=== PATIENT | female | born 1980 | race Hispanic/Latino ===

== ENCOUNTER 2018-01-07 00:24 | Emergency (ER) | payer OTHER ==
--- NOTE | 2018-01-07 00:42 | EDPHYS ---
Physician Documentation [facility] Name: Estefany Beckham Age: 37 yrs Sex: Female : 1980 Arrival Date: 01/07/2018 Time: 00:29 Bed 13 Private MD: ED Physician Jermaine Johnson HPI: 01/07 00:36 This 37 yrs old Female presents to ER via Unassigned with complaints of Insect pm1 Bite. 00:36 The patient's rash thought to be caused by insect bites. The rash is located on the pm1 dorsum of right foot. The rash can be described as vesicular. Onset: The symptoms/episode began/occurred this morning. Associated signs and symptoms: Pertinent positives: itching, Pain Pertinent negatives: burning sensation, difficulty breathing, fever. Severity of symptoms:. Treatment given at home: None. The patient has not experienced similar symptoms in the past. The patient has not recently seen a physician. Patient concerned that she might have been bitten buy a spider on her right foot. 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 - Social history:: Smoking status: Patient/guardian denies using tobacco, never smoked. - Ebola Screening: : No symptoms or risks identified at this time. ROS: 00:36 Constitutional: Negative for fever, chills, and weight loss, Eyes: Negative for injury, pm1 pain, redness, and discharge, ENT: Negative for injury, pain, and discharge, Neck: Negative for injury, pain, and swelling, Cardiovascular: Negative for chest pain, palpitations, and edema, Respiratory: Negative for shortness of breath, cough, wheezing, and pleuritic chest pain, Abdomen/GI: Negative for abdominal pain, nausea, vomiting, diarrhea, and constipation, Back: Negative for injury and pain, MS/Extremity: Negative for injury and deformity. 00:36 Neuro: Negative for headache, weakness, numbness, tingling, and seizure. 00:36 Skin: Positive for of the dorsum of right foot, burning, itchy rash. Exam: 00:36 Constitutional: This is a well developed, well nourished patient who is awake, alert, pm1 and in no acute distress. Head/Face: Normocephalic, atraumatic. Neck: Trachea midline, no thyromegaly or masses palpated, and no cervical lymphadenopathy. Supple, full range of motion without nuchal rigidity, or vertebral point tenderness. No Meningismus. Chest/axilla: Normal chest wall appearance and motion. Nontender with no deformity. No lesions are appreciated. Cardiovascular: Regular rate and rhythm with a normal S1 and S2. No gallops, murmurs, or rubs. Normal PMI, no JVD. No pulse deficits. Respiratory: Lungs have equal breath sounds bilaterally, clear to auscultation and percussion. No rales, rhonchi or wheezes noted. No increased work of breathing, no retractions or nasal flaring. Abdomen/GI: Soft, non-tender, with normal bowel sounds. No distension or tympany. No guarding or rebound. No evidence of tenderness throughout. Back: No spinal tenderness. No costovertebral tenderness. Full range of motion. 00:36 Skin: Appearance: normal except for affected area, cellulitis, that is mild, on the dorsum of right foot. 00:36 Neuro: Orientation: is normal, Motor: is normal, moves all fours. Vital Signs: 00:31 BP 145 / 81; Pulse 55; Resp 16; Temp 97.9(O); Pulse Ox 99% on R/A; Weight 131.54 kg; cc3 Height 5 ft. 3 in. (160.02 cm); 00:31 Body Mass Index 51.37 (131.54 kg, 160.02 cm) cc3 MDM: 00:31 Patient medically screened. pm1 00:41 Data reviewed: vital signs. Data interpreted: Pulse oximetry: on room air is 100 %. pm1 Interpretation: normal. Counseling: I had a detailed discussion with the patient and/or guardian regarding: the historical points, exam findings, and any diagnostic results supporting the discharge/admit diagnosis, the need for outpatient follow up, to return to the emergency department if symptoms worsen or persist or if there are any questions or concerns that arise at home. Administered Medications: 00:50 Drug: Bactrim (160 mg-800 mg (DS) 1 tablet Route: PO; cc3 01:00 Follow up: Response: No adverse reaction cc3 00:53 Drug: Tetanus-Diphtheria Toxoid Adult 0.5 ml {Manugrapher: Apozy. Exp: cc3 12/21/2019. Lot #: [id number]. } Route: IM; Site: left deltoid; 01:00 Follow up: Response: No adverse reaction cc3 Disposition: 01/07/18 00:42 Discharged to Home. Impression: Cellulitis of right lower limb - foot. - Condition is Stable. - Discharge Instructions: Insect Bite, Cellulitis, Adult. - Prescriptions for Bactrim DS 800- 160 mg Oral Tablet - take 1 tablet by ORAL route every 12 hours for 10 days; 20 tablet. - Medication Reconciliation Form, Thank You Letter, Antibiotic Education form. - Follow up: Emergency Department; When: As needed; Reason: Worsening of condition. Follow up: Private Physician; When: 2 - 3 days; Reason: Recheck today's complaints, Continuance of care, Re-evaluation by your physician. - Problem is new. - Symptoms have improved. Addendum: 01/08/2018 04:09 Co-signature as Attending Physician, Jermaine Johnson MD. g s Signatures: Diego Lewis, BARBER INSTRUCTOR BARBER INSTRUCTOR pm1 Jermaine Johnson MD MD gs Cordel, Charlene cc3 Corrections: (The following items were deleted from the chart) 01/07 01:07 00:42 01/07/2018 00:42 Discharged to Home. Impression: Cellulitis of right lower limb - cc3 foot. Condition is Stable. Forms are Medication Reconciliation Form, Thank You Letter, Antibiotic Education, Prescription Opioid Use. Follow up: Emergency Department; When: As needed; Reason: Worsening of condition. Follow up: Private Physician; When: 2 - 3 days; Reason: Recheck today's complaints, Continuance of care, Re-evaluation by your physician. Problem is new. Symptoms have improved. pm1
[2018-01-07] MEDS ORDERED: SMZ./TMP. 800/160 MG TABLET ONE (00:56)
[2018-01-07] MEDS ORDERED: TETANUS & DIPHTHERIA TOX,ADULT 0.5 ML VIAL ONE (00:57)
--- NOTE | 2018-01-07 01:07 | ER ---
Nurse's Notes [facility] Name: Estefany Beckham Age: 37 yrs Sex: Female : 1980 Arrival Date: 01/07/2018 Time: 00:29 Bed 13 Private MD: Diagnosis: Cellulitis of right lower limb-foot Presentation: 01/07 00:31 Presenting complaint: Patient states: unknown insect bite to right anterior foot area. cc3 Transition of care: patient was not received from another setting of care. Onset of symptoms was January 06, 2018. Risk Assessment: Do you want to hurt yourself or someone else? Patient reports no desire to harm self or others. Initial Sepsis Screen: Does the patient meet any 2 criteria? No. Patient's initial sepsis screen is negative. Does the patient have a suspected source of infection? No. Patient's initial sepsis screen is negative. Care prior to arrival: None. 00:31 Method Of Arrival: Ambulatory cc3 00:31 Acuity: TENISHA 4 cc3 Triage Assessment: 00:31 Bite description: bite sustained to dorsum of right foot by an unknown animal. General: cc3 Appears in no apparent distress. comfortable, Behavior is calm, cooperative, appropriate for age. Pain: Complains of pain in dorsum of right foot. EENT: No signs and/or symptoms were reported regarding the EENT system. Neuro: Level of Consciousness is awake, alert, obeys commands, Oriented to person, place, time, situation, Appropriate for age. Cardiovascular: Denies chest pain. Respiratory: Airway is patent Respiratory effort is even, unlabored, Respiratory pattern is regular, symmetrical. GI: Abdomen is round obese. : No signs and/or symptoms were reported regarding the genitourinary system. Derm: insect bite on the dorsum of the right foot. Musculoskeletal: Circulation, motion, and sensation intact. Range of motion: intact in all extremities. 00:31 Bite description: animal information: vaccination(s) is not up to date. 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 - Social history:: Smoking status: Patient/guardian denies using tobacco, never smoked. - Ebola Screening: : No symptoms or risks identified at this time. Screenin:31 Abuse screen: Denies threats or abuse. Denies injuries from another. Nutritional cc3 screening: No deficits noted. Tuberculosis screening: No symptoms or risk factors identified. Fall Risk Ambulatory Aid- None/Bed Rest/Nurse Assist (0 pts). Gait- Normal/Bed Rest/Wheelchair (0 pts) Mental Status- Oriented to own ability (0 pts). Assessment: 00:31 General: see triage assessment. cc3 00:31 Derm: Skin is intact, Skin is pink, warm \T\ dry. cc3 01:00 Reassessment: Patient appears in no apparent distress at this time. Patient and/or cc3 family updated on plan of care and expected duration. Pain level reassessed. Patient is alert, oriented x 3, equal unlabored respirations, skin warm/dry/pink. Patient discharged home with prescription given. Patient left ER vitally stable and ambulatory. Vital Signs: 00:31 BP 145 / 81; Pulse 55; Resp 16; Temp 97.9(O); Pulse Ox 99% on R/A; Weight 131.54 kg; cc3 Height 5 ft. 3 in. (160.02 cm); 00:31 Body Mass Index 51.37 (131.54 kg, 160.02 cm) cc3 ED Course: 00:29 Patient arrived in ED. ds1 00:31 Diego Lewis NP is PHCP. pm1 00:31 Jermaine Johnson MD is Attending Physician. pm1 00:31 Arm band placed on right wrist. cc3 00:31 Patient has correct armband on for positive identification. Bed in low position. Call cc3 light in reach. Side rails up X 1. 00:35 Sravani Velarde is Primary Nurse. cc3 00:44 Triage completed. cc3 01:00 No provider procedures requiring assistance completed. cc3 01:00 Patient did not have IV access during this emergency room visit. cc3 Administered Medications: 00:50 Drug: Bactrim (160 mg-800 mg (DS) 1 tablet Route: PO; cc3 01:00 Follow up: Response: No adverse reaction cc3 00:53 Drug: Tetanus-Diphtheria Toxoid Adult 0.5 ml {Lozenge Maker Helper: Zulama. Exp: cc3 12/21/2019. Lot #: [id number]. } Route: IM; Site: left deltoid; 01:00 Follow up: Response: No adverse reaction cc3 Outcome: 00:42 Discharge ordered by MD. pm1 01:00 Discharged to home ambulatory. cc3 01:00 Condition: stable 01:00 Discharge instructions given to patient, Instructed on discharge instructions, follow up and referral plans. medication usage, Demonstrated understanding of instructions, follow-up care, medications, Prescriptions given X 1. 01:07 Patient left the ED. cc3 Signatures: Lucinda Tomlin ds1 Diego Lewis, BRAXTON PSYCHIATRIC ATTENDANT pm1 Sravani Velarde cc3 Corrections: (The following items were deleted from the chart) 00:47 00:31 BP 145 / 81; Pulse 55bpm; Resp 16bpm; Pulse Ox 99% RA; Temp 97.9F Oral; cc3 cc3
== END 2018-01-07 01:07 | disposition home or self-care (01) ==
LOC: ER 00:24
DX: L03.115 Cellulitis of right lower limb (principal); I10 Essential (primary) hypertension; Z23 Encounter for immunization; Z88.8 Allergy status to other drugs, medicaments and biological substances
CPT/HCPCS: 90714; 99283

== ENCOUNTER 2018-02-03 08:17 | Emergency (ER) | payer OTHER ==
--- OUTSIDE RECORDS SUMMARY | 2018-02-03 08:19 | XMS REPORT ---
:1980 Author Organization [facility] Address [address] [place] [address] [address] [place] [address] Care Team Providers Name Role Phone STERLING GALE Unavailable Unavailable Problems This patient has no known problems. Allergies, Adverse Reactions, Alerts This patient has no known allergies or adverse reactions. Medications This patient has no known medications. Results Test Description Test Time Test Comments Text Results Atomic Results Result Comments Varicella-Zoster V Ab, IgG 2016-11-09 11:37:00 Test Item Value Reference Range Comments Varicella Zoster IgG (test 743 index Immune >165 [id number]) Negative <135 Equivocal 135 - 165 Positive >165A positive result generally indicates exposure to thepathogen or administration of specific immunoglobulins,but it is not indication of active infection or stageof disease. Mumps Antibodies, [id number] 11:37:00 Test Item Value Reference Range Comments Mumps Abs, IgG (test 106.0 AU/mL Immune >10.9 [id number]) Negative <9.0 Equivocal 9.0 - 10.9 Positive >10.9A positive result generally indicates past exposure toMumps virus or previous vaccination. Rubeola Antibodies, [id number] 11:37:00 Test Item Value Reference Range Comments Rubeola Ab, IgG (test >300.0 AU/mL Immune >29.9 [id number]) Negative <25.0 Equivocal 25.0 - 29.9 Positive >29.9Presence of antibodies to Rubeola is presumptive evidenceof immunity except when acute infection is suspected. Rubella [id number] 02:55:00 Test Item Value Reference Range Comments Rubella IgG (test code=RUBELIGG) Immune Immune Hep B Surface [id number] 01:01:00 Test Item Value Reference Range Comments Hep Bs Ab (test code=HBSAB) Nonreactive Non-Reactive
[2018-02-03 09:07] LABS: Absolute Lymphocytes (CBC) 2.4 K/uL (0.7-4.9); Absolute Monocytes 0.7 K/uL (0.1-1.3); Absolute Neutrophil 5.3 K/uL (1.8-8.0); Basophils % 0.8 % (0-1.3); Eosinophils % 0.8 % (0-4.4); Hematocrit 39.8 % (36.0-45.0); MCH 29.3 pg (27.0-35.0); MCV 85.7 fL (80-100); MPV 8.6 fL (7.6-11.3); Monocytes % 8.2 % (3.3-12.3); RBC Red Blood Cell Count 4.64 M/uL (3.86-4.86)
[2018-02-03 09:23] LABS: Urine Blood TRACE (NEG); Urine Glucose NEGATIVE (NEG); Urine Protein NEGATIVE (NEG); Urine Specific Gravity 1.015 (1.005-1.030); Urine pH 5.5 (5.0-7.0)
[2018-02-03 09:27] LABS: Potassium 3.8 mmol/L (3.5-5.1)
[2018-02-03 10:19] LABS: Urine Bacteria <20 /HPF (<20); Urine Culture Reflex Order REFLEXED; Urine RBC <5 /HPF (NONE SEEN)
[2018-02-03 10:20] LABS: Urine Yeast PRESENT (NONE SEEN)
--- NOTE | 2018-02-03 10:32 | EDPHYS ---
Physician Documentation [facility] Name: Estefany Beckham Age: 37 yrs Sex: Female : 1980 Arrival Date: 02/03/2018 Time: 08:20 Bed 19 Private MD: None, None ED Physician Jermaine Johnson HPI: 02/03 12:23 This 37 yrs old Female presents to ER via Ambulatory with complaints of Muscle gs Cramps. 12:23 The patient presents with pain. The complaints affect the right leg and left leg. gs Onset: The symptoms/episode began/occurred 2 year(s) ago. Modifying factors: The symptoms are alleviated by nothing. the symptoms are aggravated by nothing. Associated signs and symptoms: Pertinent negatives calf tenderness, numbness, tingling, weakness. Severity of symptoms: At their worst the symptoms were moderate, in the emergency department the symptoms have improved, moderately. The patient has experienced similar episodes in the past, several times. 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 - Social history:: Smoking status: Patient/guardian denies using tobacco. - Ebola Screening: : No symptoms or risks identified at this time. ROS: 12:23 All other systems are negative. gs Exam: 12:23 Head/Face: Normocephalic, atraumatic. Eyes: Pupils equal round and reactive to light, gs extra-ocular motions intact. Lids and lashes normal. Conjunctiva and sclera are non-icteric and not injected. Cornea within normal limits. Periorbital areas with no swelling, redness, or edema. ENT: Nares patent. No nasal discharge, no septal abnormalities noted. Tympanic membranes are normal and external auditory canals are clear. Oropharynx with no redness, swelling, or masses, exudates, or evidence of obstruction, uvula midline. Mucous membranes moist. Neck: Trachea midline, no thyromegaly or masses palpated, and no cervical lymphadenopathy. Supple, full range of motion without nuchal rigidity, or vertebral point tenderness. No Meningismus. Chest/axilla: Normal chest wall appearance and motion. Nontender with no deformity. No lesions are appreciated. Cardiovascular: Regular rate and rhythm with a normal S1 and S2. No gallops, murmurs, or rubs. Normal PMI, no JVD. No pulse deficits. Respiratory: Lungs have equal breath sounds bilaterally, clear to auscultation and percussion. No rales, rhonchi or wheezes noted. No increased work of breathing, no retractions or nasal flaring. Abdomen/GI: Soft, non-tender, with normal bowel sounds. No distension or tympany. No guarding or rebound. No evidence of tenderness throughout. Back: No spinal tenderness. No costovertebral tenderness. Full range of motion. Skin: Warm, dry with normal turgor. Normal color with no rashes, no lesions, and no evidence of cellulitis. Neuro: Awake and alert, GCS 15, oriented to person, place, time, and situation. Cranial nerves II-XII grossly intact. Motor strength 5/5 in all extremities. Sensory grossly intact. Cerebellar exam normal. Normal gait. 12:23 Constitutional: The patient appears alert, awake. 12:23 Musculoskeletal/extremity: Extremities: noted in the medial aspect of left thigh: tenderness, There is no evidence of decreased ROM, deformity, ecchymosis, erythema, rash, swelling, ROM: no acute changes, Pulses: Sensation intact. Vital Signs: 08:29 BP 142 / 95; Pulse 76; Resp 16; Temp 97.8; Pulse Ox 99% on R/A; Pain 0/10; hb 10:52 BP 138 / 74; Pulse 89; Resp 16; Pulse Ox 98% on R/A; Pain 0/10; iw MDM: 08:41 Patient medically screened. 12:23 Differential diagnosis: dvt,rhabdomyolysis,neuropathic pain. Data reviewed: vital gs signs, nurses notes. 02/03 08:45 Order name: CBC with Diff; Complete Time: 09:16 02/03 08:45 Order name: Basic Metabolic Panel; Complete Time: 09:37 02/03 08:45 Order name: CPK; Complete Time: 09:37 02/03 08:45 Order name: D-Dimer; Complete Time: 09:24 02/03 08:56 Order name: Urine Microscopic Only; Complete Time: 10:29 mh5 02/03 09:15 Order name: Urine Dipstick--Ancillary (enter results); Complete Time: 09:24 bd 02/03 09:15 Order name: Urine --Ancillary (enter results); Complete Time: 09:24 bd 02/03 10:22 Order name: Urine Culture EDMS Administered Medications: No medications were administered Disposition: 02/03/18 10:31 Discharged to Home. Impression: Other idiopathic peripheral autonomic neuropathy. - Condition is Stable. - Prescriptions for Neurontin 300 mg Oral Capsule - take 1 capsule by ORAL route At bedtime; 10 capsule. - Medication Reconciliation Form, Thank You Letter, Antibiotic Education, Prescription Opioid Use form. - Follow up: Private Physician; When: 2 - 3 days; Reason: Re-evaluation by your physician. Signatures: Dispatcher [employer] EDRuth Lerma RN RN iw Baxter, Heather, RN RN hb Starr, Gregory, MD MD gs Corrections: (The following items were deleted from the chart) 10:54 10:31 02/03/2018 10:31 Discharged to Home. Impression: Other idiopathic peripheral iw autonomic neuropathy. Condition is Stable. Forms are Medication Reconciliation Form, Thank You Letter, Antibiotic Education, Prescription Opioid Use. Follow up: Private Physician; When: 2 - 3 days; Reason: Re-evaluation by your physician. gs
--- NOTE | 2018-02-03 10:32 | ER ---
Nurse's Notes [facility] Name: Estefany Beckham Age: 37 yrs Sex: Female : 1980 Arrival Date: 02/03/2018 Time: 08:20 Bed 19 Private MD: None, None Diagnosis: Other idiopathic peripheral autonomic neuropathy Presentation: 02/03 08:28 Presenting complaint: Bilateral foot and lower leg cramping unrelieved by Robaxin x 1 hb week. Transition of care: patient was not received from another setting of care. Onset of symptoms was January 27, 2018. Risk Assessment: Do you want to hurt yourself or someone else? Patient reports no desire to harm self or others. Initial Sepsis Screen: Does the patient meet any 2 criteria? No. Patient's initial sepsis screen is negative. Does the patient have a suspected source of infection? No. Patient's initial sepsis screen is negative. Care prior to arrival: None. 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 - Social history:: Smoking status: Patient/guardian denies using tobacco. - Ebola Screening: : No symptoms or risks identified at this time. Screenin:46 Abuse screen: Denies threats or abuse. Denies injuries from another. Nutritional iw screening: No deficits noted. Tuberculosis screening: No symptoms or risk factors identified. Fall Risk None identified. Assessment: 08:44 General: Appears uncomfortable, Behavior is calm, cooperative. Pain: Complains of pain iw in right leg and left leg Pain at worst was 10 out of 10 on a pain scale. Neuro: Level of Consciousness is awake, alert, obeys commands, Oriented to person, place, time, situation, Moves all extremities. Full function. Cardiovascular: Patient's skin is warm and dry. Respiratory: Respiratory effort is even, unlabored, Respiratory pattern is regular. GI: Abdomen is non-distended. Derm: Skin is intact, is healthy with good turgor. Musculoskeletal: Range of motion: intact in all extremities. Musculoskeletal: Reports pain in right foot, right leg and left leg. 10:52 Reassessment: Patient appears in no apparent distress at this time. Patient and/or iw family updated on plan of care and expected duration. Pain level reassessed. Patient is alert, oriented x 3, equal unlabored respirations, skin warm/dry/pink. Patient states feeling better. Patient states symptoms have improved. Vital Signs: 08:29 BP 142 / 95; Pulse 76; Resp 16; Temp 97.8; Pulse Ox 99% on R/A; Pain 0/10; hb 10:52 BP 138 / 74; Pulse 89; Resp 16; Pulse Ox 98% on R/A; Pain 0/10; iw ED Course: 08:20 Patient arrived in ED. mr 08:21 None, None is Private Physician. mr 08:24 Venkat Monson LVN is Primary Nurse. em 08:24 Jermaine Johnson MD is Attending Physician. gs 08:29 Triage completed. hb 08:29 Arm band placed on right wrist. hb 08:55 Urine collected: clean catch specimen, cloudy. mh5 08:57 Initial lab(s) drawn, by me, sent to lab. Inserted saline lock: 20 gauge in right iw antecubital area, using aseptic technique. Blood collected. 10:52 Patient has correct armband on for positive identification. iw 10:52 No provider procedures requiring assistance completed. IV discontinued, intact, iw bleeding controlled, No redness/swelling at site. Pressure dressing applied. 10:53 Primary Nurse role handed off by Venkat Monson LVN iw 10:53 Ruth Olivares, MASOUD is Primary Nurse. iw Administered Medications: No medications were administered Outcome: 10:31 Discharge ordered by MD. gs 10:52 Discharged to home ambulatory, with family. iw 10:52 Condition: good 10:52 Discharge instructions given to patient, family, Instructed on discharge instructions, follow up and referral plans. medication usage, Demonstrated understanding of instructions, follow-up care, medications, Prescriptions given X 1. 10:54 Patient left the ED. iw Signatures: Mariama Collazo mr Venkat Monson LVN LVN em Ruth Olivares, MASOUD RN Kerry Montana RN RN Samara Alberto [facility] Jermaine Johnson MD MD
== END 2018-02-03 10:54 | disposition home or self-care (01) ==
LOC: ER 08:17
DX: G90.09 Other idiopathic peripheral autonomic neuropathy (principal); I10 Essential (primary) hypertension; Z79.84 Long term (current) use of oral hypoglycemic drugs; Z79.899 Other long term (current) drug therapy
CPT/HCPCS: 36415; 80048; 81003; 81015; 81025; 82550; 85025; 85379; 87086; 87088; 99283

== ENCOUNTER 2022-05-01 18:21 | Emergency (ER) | payer BC ==
--- OUTSIDE RECORDS SUMMARY | 2022-05-01 18:29 | XMS REPORT | Continuity of Care Document ---
:1980 Author Organization [facility] t Address [address] [place] [address] Care Team Providers Name Role Phone ALEX TALAVERA Primary Care Physician Unavailable AYAZ MOULTON Attending Clinician Unavailable Keegan Whitaker MD Attending Clinician NIDIA TINSLEY Attending Clinician Unavailable Vaccine, Ang Db [facility] Attending Clinician Unavailable Unknown, Attending Attending Clinician Unavailable Manpreet Layne MD Attending Clinician [phone] KEEGAN WHITAKER Attending Clinician Unavailable Joelle Bardales MD Attending Clinician [phone] Doctor Unassigned, [place] Attending Clinician Unavailable Vaccine, [facility] Attending Clinician Unavailable Jerod Freire DO Attending Clinician JEROD FREIRE Attending Clinician Unavailable Only, [facility] Test Attending Clinician Unavailable Bill Manrique MD Attending Clinician BILL MANRIQUE Attending Clinician Unavailable Only, [facility] U[facility] Test Attending Clinician Unavailable RUI MARCOS Attending Clinician Unavailable UNKNOWN, ATTENDING Attending Clinician Unavailable BRIDGER BRITO Attending Clinician Unavailable LYNN BAÑUELOS Attending Clinician Unavailable Lab, [facility] Pob I Attending Clinician Unavailable Dean Ferrer Attending Clinician DEAN FARIAS Attending Clinician Unavailable BOBBY SHEA Attending Clinician Unavailable Orquidea Castaneda Attending Clinician Denise Judge MD Attending Clinician RENETTA SEGUNDO Attending Clinician Unavailable Aleksandra White Attending Clinician Provider, [facility] Attending Clinician Unavailable ALEKSANDRA DAVIDSON Attending Clinician Unavailable PLACIDO MARCELO Attending Clinician Unavailable Eula Elkins Attending Clinician EULA GRAFF Attending Clinician Unavailable Airam Almeida RN Attending Clinician Unavailable Ayaz Moulton MD Attending Clinician [facility] Attending Clinician Unavailable Bailee Alicea RN Attending Clinician Deysi Johnson Attending Clinician DENISE JUDGE Attending Clinician Unavailable Claudio Rutledge DO Attending Clinician Nayan Krishnamurthy MD Attending Clinician Fabiola Patel NP Attending Clinician Luba Narayanan Attending Clinician [facility] Attending Clinician Unavailable KLAUDIA WALKER Attending Clinician Unavailable Klaudia Walker MD Attending Clinician CHEN QUICK Attending Clinician Unavailable Alex Talavera Attending Clinician Unavailable Alex Talavera Attending Clinician Unavailable [facility] Attending Clinician Unavailable AYAZ MOULTON Admitting Clinician Unavailable Ayaz Moulton MD Admitting Clinician Nayan Krishnamurthy MD Admitting Clinician KLAUDIA WALKER Admitting Clinician Unavailable CHEN QUICK Admitting Clinician Unavailable Alex Talavera Admitting Clinician Unavailable [facility] Admitting Clinician Unavailable Payers Payer Name Policy Type Policy Number Effective Date Expiration Date Alondra ingram [facility] [id number] 2018 EMPLOYEE PLAN 00:00:00 Problems Condition Condition Condition Status Onset Resolution Last Treating Co mments Source Name Details Category Date Date Treatment Clinician Date History of History of Disease Active M ethodi colon colon 6-10 st polyps polyps 00:00: Hospita 00 l Essential Essential Disease Active Met hodi hypertensi hypertensi 4-27 st on on 00:00: Hospita 00 l Respirator Respirator Disease Active M ethodi y tract y tract 3-29 st infection infection 00:00: Hosp ariella due to due to 00 l COVID-19 COVID-19 virus virus Morbid Morbid Disease Active [facility] obesity obesity 3-29 st 00:00: Hospita 00 l Recent Recent Disease Active 2019-03 [facility] major major 2-01 st surgery surgery 00:00: Hospita 00 l Abnormal Abnormal Disease Active 2019-03 Metho di uterine uterine 0-27 st bleeding bleeding 00:00: Hospit a (AUB) (AUB) 00 l Benign Benign Disease Active 2019-03 [facility] essential essential 0-27 st hypertensi hypertensi 00:00: Ho spita on on 00 l Class 3 Class 3 Disease Active 2019-03 [facility] severe severe 0-27 st obesity obesity 00:00: Hospita with with 00 l serious serious comorbidit comorbidit y and body y and body mass index mass index (BMI) of (BMI) of 50.0 to 50.0 to 59.9 in 59.9 in adult adult Pneumonia Pneumonia Disease Active Met hodi due to due to 8-16 st COVID-19 COVID-19 00:00: Hospit a virus virus 00 l Morbid Morbid Disease Active Methodi obesity obesity 8-16 st with body with body 00:00: Hosp ariella mass index mass index 00 l of 50 or of 50 or higher higher High blood High blood Disease Active M ethodi pressure pressure 3-17 st 00:00: Hospita 00 l Allergies, Adverse Reactions, Alerts Allergy Allergy Status Severity Reaction(s) Onset Inactive Treating Comm ents Source Name Type Date Date Clinician Marva Propi Active Hives Method i zaprine ty to 3-03 st adverse 00:00: Hospita reaction 00 l s to drug HYDROMOR DRUG Active Other-Cmnt 2019-03 Univ ers PHONE INGREDI 0 ity of 00:00: [address] Hydromor Propensi Active Other - See 2019-03 Hard to Univers phone ty to comments 0-26 wake up ity of adverse 00:00: [place] reaction 00 Medical s Branch Hydromor Propensi Active Other (See 2019-03 Hard to M ethodi phone ty to Comments) 0-[address] adverse 00:00: Hospita reaction 00 l s to drug CYCLOBEN DRUG Active Hives 2018- Univers ZAPRINE INGREDI 3-13 ity of HCL 00:00: [place] 00 Medical Branch Cycloben Propensi Active Hives 2018- Univer s zaprine ty to 3-13 ity of Hcl adverse 00:00: [place] reaction 00 Medical s Branch Cycloben Propensi Active Hives 2018-0 Method i zaprine ty to 3-13 st Hcl adverse 00:00: Hospita reaction 00 l s to drug Flexeril Drug Active Hives [facility] Family History Family Member Diagnosis Comments Start Date Stop Date Source Natural father [facility] father P[facility] Natural father Diabetes [facility] Natural father [facility]aternal Rheum [facility] Natural mother [facility] Natural mother [facility] Paternal Rheum arthritis [facility] Paternal Rheum [facility] Natural sister Polycystic ovary [facility] Natural son [facility] Natural daughter Hypothyroidism [facility] Natural daughter Polycystic ovary [facility] Social History Social Habit Start Date Stop Date Quantity Comments Source History [facility] Exposure to 2021-12-19 2021-12-29 Not sure University SARS-CoV-2 00:00:00 13:56:00 [facility] (event) Branch Alcohol intake 2021-02-01 2021-02-01 Current drinker Metho dist 00:00:00 00:00:00 of alcohol Hospital (finding) Tobacco use and 2020-05-26 2020-05-26 Smokeless tobacco [facility] exposure 00:00:00 00:00:00 non-user Hospital History SDMS 2020-05-26 2020-05-26 2 [facility] Alcohol Frequency 00:00:00 00:00:00 Hospita l History SDOH 2020-05-26 2020-05-26 1 [facility] Alcohol Std 00:00:00 00:00:00 Hospital Drinks Alcohol Comment 2018-06-05 2018-06-05 once a year Universi ty of 00:00:00 00:00:00 [facility] Sex Assigned At [birth year] F [facility] 00:00:00 00:00:00 Hospital Smoking Status Start Date Stop Date Source Never smoked tobacco [facility] Medications Ordered Filled Start Stop Current Ordering Indication Dosage Frequency Signature Comments Components Source Medication Medication Date Date Medication? Clinician (SIG) Name Name montelukast Yes [id number] TAKE ONE Methodi (SINGULAIR) 9-12 (1) st 10 mg 00:00: TABLET(S) Hospita tablet 00 BY MOUTH l EVERY NIGHT. cetirizine Yes [id number] TAKE ONE Methodi (ZyrTEC) 10 9-12 (1) st MG tablet 00:00: TABLET(S) Hos fátima 00 BY MOUTH l ONCE A DAY. semaglutide Yes [id number] Start: Univers , weight 7-14 104 0.25mg SC ity of loss, 00:00: qWeek x 4 [place] () 00 Weeks; Medical 0.25 mg/0.5 then 0.5mg Br anch mL PnIj SC SC qWeek x injection 4 Weeks; then 1mg SC qWeek x 4 Weeks; then 1.7mg SC qWeek x 4 Weeks; then 2.4mg qWeek. semaglutide Yes [id number] 2.4mg inject 2.4 Univers , weight 7-14 104 mg under ity of loss, 00:00: the skin [place] () 00 weekly. Medical 2.4 mg/0.75 Start: Branch mL PnIj SC 0.25mg SC injection qWeek x 4 Weeks; then 0.5mg SC qWeek x 4 Weeks; then 1mg SC qWeek x 4 Weeks; then 1.7mg SC qWeek x 4 Weeks; then 2.4mg qWeek. semaglutide Yes [id number] Start: Univers , weight 7-14 104 0.25mg SC ity of loss, 00:00: qWeek x 4 [place] (GO) 00 Weeks; Medical 1.7 mg/0.75 then 0.5mg Br anch mL PnIj SC SC qWeek x injection 4 Weeks; then 1mg SC qWeek x 4 Weeks; thes1.7mg SC qWeek x 4 Weeks; then 2.4mg qWeek. semaglutide 2021-0 Yes [id number] Start: Univers , weight 7-14 104 0.25mg SC ity of loss, 00:00: qWeek x 4 [facility] 00 Weeks; Medical mg/0.5 mL then 0.5mg Bran ch PnIj SC SC qWeek x injection 4 Weeks; then 1mg SC qWeek x 4 Weeks; then 1.7mg SC qWeek x 4 Weeks; then 2.4mg qWeek. semaglutide 2021-0 Yes [id number] Start: Univers , weight 7-14 104 0.25mg SC ity of loss, 00:00: qWeek x 4 [place] [facility]) 00 Weeks; Medical 0.25 mg/0.5 then 0.5mg Br anch mL PnIj SC SC qWeek x injection 4 Weeks; then 1mg SC qWeek x 4 Weeks; then 1.7mg SC qWeek x 4 Weeks; then 2.4mg qWeek. semaglutide 2021-0 Yes [id number] 2.4mg inject 2.4 Univers , weight 7-14 104 mg under ity of loss, 00:00: the skin [place] () 00 weekly. Medical 2.4 mg/0.75 Start: Branch mL PnIj SC 0.25mg SC injection qWeek x 4 Weeks; then 0.5mg SC qWeek x 4 Weeks; then 1mg SC qWeek x 4 Weeks; then 1.7mg SC qWeek x 4 Weeks; then 2.4mg qWeek. semaglutide 2021-0 Yes [id number] Start: Univers , weight 7-14 104 0.25mg SC ity of loss, 00:00: qWeek x 4 [place] () 00 Weeks; Medical 1.7 mg/0.75 then 0.5mg Br anch mL PnIj SC SC qWeek x injection 4 Weeks; then 1mg SC qWeek x 4 Weeks; thes1.7mg SC qWeek x 4 Weeks; then 2.4mg qWeek. semaglutide 2021-0 Yes [id number] Start: Univers , weight 7-14 104 0.25mg SC ity of loss, 00:00: qWeek x 4 [facility]) 00 Weeks; Medical mg/0.5 mL then 0.5mg Bran ch PnIj SC SC qWeek x injection 4 Weeks; then 1mg SC qWeek x 4 Weeks; then 1.7mg SC qWeek x 4 Weeks; then 2.4mg qWeek. semaglutide 2021-0 Yes [id number] Start: Univers , weight 7-14 104 0.25mg SC ity of loss, 00:00: qWeek x 4 [place] ([facility]) 00 Weeks; Medical 0.25 mg/0.5 then 0.5mg Br anch mL PnIj SC SC qWeek x injection 4 Weeks; then 1mg SC qWeek x 4 Weeks; then 1.7mg SC qWeek x 4 Weeks; then 2.4mg qWeek. semaglutide 2021-0 Yes [id number] 2.4mg inject 2.4 Univers , weight 7-14 104 mg under ity of loss, 00:00: the skin [place] ([facility]) 00 weekly. Medical 2.4 mg/0.75 Start: Branch mL PnIj SC 0.25mg SC injection qWeek x 4 Weeks; then 0.5mg SC qWeek x 4 Weeks; then 1mg SC qWeek x 4 Weeks; then 1.7mg SC qWeek x 4 Weeks; then 2.4mg qWeek. semaglutide 2021-0 Yes [id number] Start: Univers , weight 7-14 104 0.25mg SC ity of loss, 00:00: qWeek x 4 [place] () 00 Weeks; Medical 1.7 mg/0.75 then 0.5mg Br anch mL PnIj SC SC qWeek x injection 4 Weeks; then 1mg SC qWeek x 4 Weeks; thes1.7mg SC qWeek x 4 Weeks; then 2.4mg qWeek. semaglutide 2021-0 Yes [id number] Start: Univers , weight 7-14 104 0.25mg SC ity of loss, 00:00: qWeek x 4 [facility] 00 Weeks; Medical mg/0.5 mL then 0.5mg Bran ch PnIj SC SC qWeek x injection 4 Weeks; then 1mg SC qWeek x 4 Weeks; then 1.7mg SC qWeek x 4 Weeks; then 2.4mg qWeek. semaglutide 2021-0 Yes [id number] Start: Univers , weight 7-14 104 0.25mg SC ity of loss, 00:00: qWeek x 4 [facility]) 00 Weeks; Medical 0.25 mg/0.5 then 0.5mg Br anch mL PnIj SC SC qWeek x injection 4 Weeks; then 1mg SC qWeek x 4 Weeks; then 1.7mg SC qWeek x 4 Weeks; then 2.4mg qWeek. semaglutide 2021-0 Yes [id number] 2.4mg inject 2.4 Univers , weight 7-14 104 mg under ity of loss, 00:00: the skin [facility]) 00 weekly. Medical 2.4 mg/0.75 Start: Branch mL PnIj SC 0.25mg SC injection qWeek x 4 Weeks; then 0.5mg SC qWeek x 4 Weeks; then 1mg SC qWeek x 4 Weeks; then 1.7mg SC qWeek x 4 Weeks; then 2.4mg qWeek. semaglutide 2021-0 Yes [id number] Start: Univers , weight 7-14 104 0.25mg SC ity of loss, 00:00: qWeek x 4 [facility] 00 Weeks; Medical 1.7 mg/0.75 then 0.5mg Br anch mL PnIj SC SC qWeek x injection 4 Weeks; then 1mg SC qWeek x 4 Weeks; thes1.7mg SC qWeek x 4 Weeks; then 2.4mg qWeek. semaglutide 2021-0 Yes [id number] Start: Univers , weight 7-14 104 0.25mg SC ity of loss, 00:00: qWeek x 4 [facility] 00 Weeks; Medical mg/0.5 mL then 0.5mg Bran ch PnIj SC SC qWeek x injection 4 Weeks; then 1mg SC qWeek x 4 Weeks; then 1.7mg SC qWeek x 4 Weeks; then 2.4mg qWeek. semaglutide 2-0 Yes [id number] Start: Univers , weight 7-14 104 0.25mg SC ity of loss, 00:00: qWeek x 4 [facility]) 00 Weeks; Medical 0.25 mg/0.5 then 0.5mg Br anch mL PnIj SC SC qWeek x injection 4 Weeks; then 1mg SC qWeek x 4 Weeks; then 1.7mg SC qWeek x 4 Weeks; then 2.4mg qWeek. semaglutide 2-0 Yes [id number] 2.4mg inject 2.4 Univers , weight 7-14 104 mg under ity of loss, 00:00: the skin [place] () 00 weekly. Medical 2.4 mg/0.75 Start: Branch mL PnIj SC 0.25mg SC injection qWeek x 4 Weeks; then 0.5mg SC qWeek x 4 Weeks; then 1mg SC qWeek x 4 Weeks; then 1.7mg SC qWeek x 4 Weeks; then 2.4mg qWeek. semaglutide 2-0 Yes [id number] Start: Univers , weight 7-14 104 0.25mg SC ity of loss, 00:00: qWeek x 4 [place] ( 00 Weeks; Medical 1.7 mg/0.75 then 0.5mg Br anch mL PnIj SC SC qWeek x injection 4 Weeks; then 1mg SC qWeek x 4 Weeks; thes1.7mg SC qWeek x 4 Weeks; then 2.4mg qWeek. semaglutide 2-0 Yes [id number] Start: Univers , weight 7-14 104 0.25mg SC ity of loss, 00:00: qWeek x 4 ( 00 Weeks; Medical mg/0.5 mL then 0.5mg Bran ch PnIj SC SC qWeek x injection 4 Weeks; then 1mg SC qWeek x 4 Weeks; then 1.7mg SC qWeek x 4 Weeks; then 2.4mg qWeek. semaglutide 2022-0 Yes [id number] Start: Univers , weight 7-14 104 0.25mg SC ity of loss, 00:00: qWeek x 4 () 00 Weeks; Medical 0.25 mg/0.5 then 0.5mg Br anch mL PnIj SC SC qWeek x injection 4 Weeks; then 1mg SC qWeek x 4 Weeks; then 1.7mg SC qWeek x 4 Weeks; then 2.4mg qWeek. semaglutide 2021-0 Yes [id number] 2.4mg inject 2.4 Univers , weight 7-14 104 mg under ity of loss, 00:00: the skin () 00 weekly. Medical 2.4 mg/0.75 Start: Branch mL PnIj SC 0.25mg SC injection qWeek x 4 Weeks; then 0.5mg SC qWeek x 4 Weeks; then 1mg SC qWeek x 4 Weeks; then 1.7mg SC qWeek x 4 Weeks; then 2.4mg qWeek. semaglutide 2021-0 Yes [id number] Start: Univers , weight 7-14 104 0.25mg SC ity of loss, 00:00: qWeek x 4 () 00 Weeks; Medical 1.7 mg/0.75 then 0.5mg Br anch mL PnIj SC SC qWeek x injection 4 Weeks; then 1mg SC qWeek x 4 Weeks; thes1.7mg SC qWeek x 4 Weeks; then 2.4mg qWeek. semaglutide 2021-0 Yes [id number] Start: Univers , weight 7-14 104 0.25mg SC ity of loss, 00:00: qWeek x 4 () 1 00 Weeks; Medical mg/0.5 mL then 0.5mg Bran ch PnIj SC SC qWeek x injection 4 Weeks; then 1mg SC qWeek x 4 Weeks; then 1.7mg SC qWeek x 4 Weeks; then 2.4mg qWeek. semaglutide 2021-0 Yes [id number] Start: Univers , weight 7-14 104 0.25mg SC ity of loss, 00:00: qWeek x 4 () 00 Weeks; Medical 0.25 mg/0.5 then 0.5mg Br anch mL PnIj SC SC qWeek x injection 4 Weeks; then 1mg SC qWeek x 4 Weeks; then 1.7mg SC qWeek x 4 Weeks; then 2.4mg qWeek. semaglutide 2021-0 Yes [id number] 2.4mg inject 2.4 Univers , weight 7-14 104 mg under ity of loss, 00:00: the skin [facility]) 00 weekly. Medical 2.4 mg/0.75 Start: Branch mL PnIj SC 0.25mg SC injection qWeek x 4 Weeks; then 0.5mg SC qWeek x 4 Weeks; then 1mg SC qWeek x 4 Weeks; then 1.7mg SC qWeek x 4 Weeks; then 2.4mg qWeek. semaglutide 0 Yes [id number] Start: Univers , weight 7-14 104 0.25mg SC ity of loss, 00:00: qWeek x 4 [facility]) 00 Weeks; Medical 1.7 mg/0.75 then 0.5mg Br anch mL PnIj SC SC qWeek x injection 4 Weeks; then 1mg SC qWeek x 4 Weeks; thes1.7mg SC qWeek x 4 Weeks; then 2.4mg qWeek. semaglutide 2021-0 Yes [id number] Start: Univers , weight 7-14 104 0.25mg SC ity of loss, 00:00: qWeek x 4 [facility] 00 Weeks; Medical mg/0.5 mL then 0.5mg Bran ch PnIj SC SC qWeek x injection 4 Weeks; then 1mg SC qWeek x 4 Weeks; then 1.7mg SC qWeek x 4 Weeks; then 2.4mg qWeek. semaglutide 2021-0 Yes [id number] 2.4mg inject 2.4 Univers , weight 6-27 104 mg under ity of loss, 00:00: the skin [facility]) 00 weekly. Medical 2.4 mg/0.75 Start: Branch mL PnIj SC 0.25mg SC injection qWeek x 4 Weeks; then 0.5mg SC qWeek x 4 Weeks; then 1mg SC qWeek x 4 Weeks; then 1.7mg SC qWeek x 4 Weeks; then 2.4mg qWeek. semaglutide 2-0 Yes [id number] Start: Univers , weight 6-27 104 0.25mg SC ity of loss, 00:00: qWeek x 4 [place] () 00 Weeks; Medical 1.7 mg/0.75 then 0.5mg Br anch mL PnIj SC SC qWeek x injection 4 Weeks; then 1mg SC qWeek x 4 Weeks; thes1.7mg SC qWeek x 4 Weeks; then 2.4mg qWeek. semaglutide 2021-0 Yes [id number] Start: Univers , weight 6-27 104 0.25mg SC ity of loss, 00:00: qWeek x 4 [place] () 00 Weeks; Medical mg/0.5 mL then 0.5mg Bran ch PnIj SC SC qWeek x injection 4 Weeks; then 1mg SC qWeek x 4 Weeks; then 1.7mg SC qWeek x 4 Weeks; then 2.4mg qWeek. semaglutide 2-0 Yes [id number] Start: Univers , weight 6-27 104 0.25mg SC ity of loss, 00:00: qWeek x 4 [place] () 00 Weeks; Medical 0.25 mg/0.5 then 0.5mg Br anch mL PnIj SC SC qWeek x injection 4 Weeks; then 1mg SC qWeek x 4 Weeks; then 1.7mg SC qWeek x 4 Weeks; then 2.4mg qWeek. semaglutide 2021-0 Yes [id number] 2.4mg inject 2.4 Univers , weight 6-27 104 mg under ity of loss, 00:00: the skin [place] () 00 weekly. Medical 2.4 mg/0.75 Start: Branch mL PnIj SC 0.25mg SC injection qWeek x 4 Weeks; then 0.5mg SC qWeek x 4 Weeks; then 1mg SC qWeek x 4 Weeks; then 1.7mg SC qWeek x 4 Weeks; then 2.4mg qWeek. semaglutide 2-0 Yes [id number] Start: Univers , weight 6-27 104 0.25mg SC ity of loss, 00:00: qWeek x 4 () 00 Weeks; Medical 1.7 mg/0.75 then 0.5mg Br anch mL PnIj SC SC qWeek x injection 4 Weeks; then 1mg SC qWeek x 4 Weeks; thes1.7mg SC qWeek x 4 Weeks; then 2.4mg qWeek. semaglutide 2021-0 Yes [id number] Start: Univers , weight 6-27 104 0.25mg SC ity of loss, 00:00: qWeek x 4 () 00 Weeks; Medical mg/0.5 mL then 0.5mg Bran ch PnIj SC SC qWeek x injection 4 Weeks; then 1mg SC qWeek x 4 Weeks; then 1.7mg SC qWeek x 4 Weeks; then 2.4mg qWeek. semaglutide 2021-0 Yes [id number] Start: Univers , weight 6-27 104 0.25mg SC ity of loss, 00:00: qWeek x 4 () 00 Weeks; Medical 0.25 mg/0.5 then 0.5mg Br anch mL PnIj SC SC qWeek x injection 4 Weeks; then 1mg SC qWeek x 4 Weeks; then 1.7mg SC qWeek x 4 Weeks; then 2.4mg qWeek. semaglutide 2021-0 Yes [id number] 2.4mg inject 2.4 Univers , weight 6-27 104 mg under ity of loss, 00:00: the skin () 00 weekly. Medical 2.4 mg/0.75 Start: Branch mL PnIj SC 0.25mg SC injection qWeek x 4 Weeks; then 0.5mg SC qWeek x 4 Weeks; then 1mg SC qWeek x 4 Weeks; then 1.7mg SC qWeek x 4 Weeks; then 2.4mg qWeek. semaglutide 2021-0 Yes [id number] Start: Univers , weight 6-27 104 0.25mg SC ity of loss, 00:00: qWeek x 4 () 00 Weeks; Medical 1.7 mg/0.75 then 0.5mg Br anch mL PnIj SC SC qWeek x injection 4 Weeks; then 1mg SC qWeek x 4 Weeks; thes1.7mg SC qWeek x 4 Weeks; then 2.4mg qWeek. semaglutide Yes [id number] Start: Univers , weight 6-27 104 0.25mg SC ity of loss, 00:00: qWeek x 4 [facility]) 1 00 Weeks; Medical mg/0.5 mL then 0.5mg Bran ch PnIj SC SC qWeek x injection 4 Weeks; then 1mg SC qWeek x 4 Weeks; then 1.7mg SC qWeek x 4 Weeks; then 2.4mg qWeek. semaglutide Yes [id number] Start: Univers , weight 6- 104 0.25mg SC ity of loss, 00:00: qWeek x 4 [facility]) 00 Weeks; Medical 0.25 mg/0.5 then 0.5mg Br anch mL PnIj SC SC qWeek x injection 4 Weeks; then 1mg SC qWeek x 4 Weeks; then 1.7mg SC qWeek x 4 Weeks; then 2.4mg qWeek. semaglutide 2021- No [id number] 2.4mg inject 2.4 Univers , weight 6-27 07-14 104 mg under ity of loss, 00:00: 00:00 the skin [place] ([facility]) 00 :00 weekly. Medical 2.4 mg/0.75 Start: Branch mL PnIj SC 0.25mg SC injection qWeek x 4 Weeks; then 0.5mg SC qWeek x 4 Weeks; then 1mg SC qWeek x 4 Weeks; then 1.7mg SC qWeek x 4 Weeks; then 2.4mg qWeek. semaglutide 2021- No [id number] Start: Univers , weight 6-27 07-14 104 0.25mg SC ity o f loss, 00:00: 00:00 qWeek x 4 [facility]) 00 :00 Weeks; Medical 1.7 mg/0.75 then 0.5mg Br anch mL PnIj SC SC qWeek x injection 4 Weeks; then 1mg SC qWeek x 4 Weeks; thes1.7mg SC qWeek x 4 Weeks; then 2.4mg qWeek. semaglutide 2021- No [id number] Start: Univers , weight 09-19 104 0.25mg SC ity o f loss, 00:00: 00:00 qWeek x 4 [facility] 00 :00 Weeks; Medical mg/0.5 mL then 0.5mg Bran ch PnIj SC SC qWeek x injection 4 Weeks; then 1mg SC qWeek x 4 Weeks; then 1.7mg SC qWeek x 4 Weeks; then 2.4mg qWeek. semaglutide No [id number] Start: [facility] , weight 09-19 104 0.25mg SC ity o f loss, 00:00: 00:00 qWeek x 4 [place] ([facility]) 00 :00 Weeks; Medical 0.25 mg/0.5 then 0.5mg Br anch mL PnIj SC SC qWeek x injection 4 Weeks; then 1mg SC qWeek x 4 Weeks; then 1.7mg SC qWeek x 4 Weeks; then 2.4mg qWeek. semaglutide 2021- No [id number] 2.4mg inject 2.4 [facility] , weight 09-19 104 mg under ity of loss, 00:00: 00:00 the skin [place] ([facility]) 00 :00 weekly. Medical 2.4 mg/0.75 Start: Branch mL PnIj SC 0.25mg SC injection qWeek x 4 Weeks; then 0.5mg SC qWeek x 4 Weeks; then 1mg SC qWeek x 4 Weeks; then 1.7mg SC qWeek x 4 Weeks; then 2.4mg qWeek. semaglutide 2021- No [id number] Start: Univers , weight 09-19 104 0.25mg SC ity o f loss, 00:00: 00:00 qWeek x 4 [place] ([facility]) 00 :00 Weeks; Medical 1.7 mg/0.75 then 0.5mg Br anch mL PnIj SC SC qWeek x injection 4 Weeks; then 1mg SC qWeek x 4 Weeks; thes1.7mg SC qWeek x 4 Weeks; then 2.4mg qWeek. semaglutide 2021- No [id number] Start: [facility] , weight 09-19 104 0.25mg SC ity o f loss, 00:00: 00:00 qWeek x 4 [place] [id number] 00 :00 Weeks; Medical mg/0.5 mL then 0.5mg Bran ch PnIj SC SC qWeek x injection 4 Weeks; then 1mg SC qWeek x 4 Weeks; then 1.7mg SC qWeek x 4 Weeks; then 2.4mg qWeek. semaglutide 2021- No [id number] Start: [facility] , weight 09-19 104 0.25mg SC ity o f loss, 00:00: 00:00 qWeek x 4 [facility] 00 :00 Weeks; Medical 0.25 mg/0.5 then 0.5mg Br anch mL PnIj SC SC qWeek x injection 4 Weeks; then 1mg SC qWeek x 4 Weeks; then 1.7mg SC qWeek x 4 Weeks; then 2.4mg qWeek. omeprazole 2021-0 Yes 20mg Take 20 mg U nivers 20 mg 5-26 by mouth. ity of capsule 11:00: [address] omeprazole 2021-0 Yes 20mg Take 20 mg U nivers 20 mg 5-26 by mouth. ity of capsule 11:00: [address] omeprazole 2021-0 Yes 20mg Take 20 mg U nivers 20 mg 5-26 by mouth. ity of capsule 11:00: [address] omeprazole 2-0 Yes 20mg Take 20 mg U nivers 20 mg 5-26 by mouth. ity of capsule 11:00: [address] omeprazole 2-0 Yes 20mg Take 20 mg U nivers 20 mg 5-26 by mouth. ity of capsule 11:00: [address] omeprazole 2021-0 Yes 20mg Take 20 mg U nivers 20 mg 5-26 by mouth. ity of capsule 11:00: [address] omeprazole 0 Yes 20mg Take 20 mg U nivers 20 mg 5-26 by mouth. ity of capsule 11:00: [address] omeprazole 0 Yes 20mg Take 20 mg U nivers 20 mg 5-26 by mouth. ity of capsule 11:00: [address] omeprazole 0 Yes 20mg Take 20 mg U nivers 20 mg 5-26 by mouth. ity of capsule 11:00: [address] omeprazole 0 Yes 20mg Take 20 mg U nivers 20 mg 5-26 by mouth. ity of capsule 11:00: [address] omeprazole 0 Yes 20mg Take 20 mg U nivers 20 mg 5-26 by mouth. ity of capsule 11:00: [address] omeprazole Yes 20mg Take 20 mg U nivers 20 mg 5-26 by mouth. ity of capsule 11:00: [address] semaglutide 2021- No [id number] 1mg inject 1 [facility] (OZEMPIC) 1 08-18 06-27 mg under ity of mg/dose (4 00:00: [place]:00 [place] mg/3 mL) 00 :00 weekly. Medical PnIj Start: Branch 0.25mg SC qWeek x 4 Weeks; then 0.5mg SC qWeek x 4 Weeks; then 1mg SC qWeek semaglutide 2021- No [id number] inject [facility] (OZEMPIC) 08-18- 0.25 mg ity of 0.25 mg or 00:00: 00:00 under [place] 0.5 mg(2 00 :00 skin Medical mg/1.5 mL) weekly for Bra nch PnIj 30 days, THEN 0.5 mg weekly for 30 days. cholecalcif 2020-03 Yes [id number] Q1W Take Meth sarah beth shey, 04-03 50,000 [address] vitamin D3, 12:26: Units by [facility] 1,250 mcg 46 mouth l (50,000 every 7 unit) days. capsule omeprazole 2020-03 Yes 20mg QD Take 20 mg [facility] (PriLOSEC) 04-[address] 20 MG 12:26: daily. [facility] capsule 46 l ketoconazol Yes Q.5D Apply [facility] di [facility] (NIZORAL) 8-[address] 2 % cream 00:00: 2 (two) [facility] 00 times a l day for 14 days. losartan Yes [id number] 50mg QD Take 1 [facility] (COZAAR) 50 6-10 tablet (50 st MG tablet 00:00: mg total) Hos fátima 00 by mouth l daily. montelukast 2021- No [id number] 10mg QD Take 1 [facility] (SINGULAIR) 6-10 -12 tablet (10 s t 10 mg 00:00: 00:00 mg total) Hospit a tablet 00 :00 by mouth l nightly. cetirizine 2021- No [id number] 10mg QD Take 1 [facility] (ZyrTEC) 10 6-10 09-12 tablet (10 s t MG tablet 00:00: 00:00 mg total) [facility] 00 :00 by mouth l daily. LOSARTAN 50 Yes [id number] TAKE ONE [facility] mg tablet 5-09 (1) ity of 00:00: TABLET(S) [place] 00 BY MOUTH Medical ONCE A Branch DAY. CETIRIZINE Yes TAKE ONE [facility] vers 10 mg 5-09 (1) ity of tablet 00:00: TABLET(S) [place] 00 BY MOUTH Medical ONCE A Branch DAY. LOSARTAN 50 Yes [id number] TAKE ONE [facility] mg tablet 5-09 (1) ity of 00:00: TABLET(S) [place] 00 BY MOUTH Medical ONCE A Branch DAY. CETIRIZINE Yes TAKE ONE [facility] vers 10 mg 5-09 (1) ity of tablet 00:00: TABLET(S) [place] 00 BY MOUTH Medical ONCE A Branch DAY. LOSARTAN 50 Yes [id number] TAKE ONE [facility] mg tablet 5-09 (1) ity of 00:00: TABLET(S) [place] 00 BY MOUTH Medical ONCE A Branch DAY. CETIRIZINE Yes TAKE ONE [facility] vers 10 mg 5-09 (1) ity of tablet 00:00: TABLET(S) [place] 00 BY MOUTH Medical ONCE A Branch DAY. LOSARTAN 50 Yes [id number] TAKE ONE [facility] mg tablet 5-09 (1) ity of 00:00: TABLET(S) [place] 00 BY MOUTH Medical ONCE A Branch DAY. CETIRIZINE 0 Yes TAKE ONE [facility] vers 10 mg 5-09 (1) ity of tablet 00:00: TABLET(S) [place] 00 BY MOUTH Medical ONCE A Branch DAY. LOSARTAN 50 0 Yes [id number] TAKE ONE [facility] mg tablet 5-09 (1) ity of 00:00: TABLET(S) [place] 00 BY MOUTH Medical ONCE A Branch DAY. CETIRIZINE 0 Yes TAKE ONE [facility] vers 10 mg 5-09 (1) ity of tablet 00:00: TABLET(S) [place] 00 BY MOUTH Medical ONCE A Branch DAY. LOSARTAN 50 0 Yes [id number] TAKE ONE [facility] mg tablet 5-09 (1) ity of 00:00: TABLET(S) [place] 00 BY MOUTH Medical ONCE A Branch DAY. CETIRIZINE Yes TAKE ONE [facility] vers 10 mg 5-09 (1) ity of tablet 00:00: TABLET(S) [place] 00 BY MOUTH Medical ONCE A Branch DAY. LOSARTAN 50 0 Yes [id number] TAKE ONE [facility] mg tablet 5-09 (1) ity of 00:00: TABLET(S) [place] 00 BY MOUTH Medical ONCE A Branch DAY. CETIRIZINE 0 Yes TAKE ONE [facility] vers 10 mg 5-09 (1) ity of tablet 00:00: TABLET(S) [place] 00 BY MOUTH Medical ONCE A Branch DAY. LOSARTAN 50 0 Yes [id number] TAKE ONE [facility] mg tablet 5-09 (1) ity of 00:00: TABLET(S) [place] 00 BY MOUTH Medical ONCE A Branch DAY. CETIRIZINE 0 Yes TAKE ONE [facility] vers 10 mg 5-09 (1) ity of tablet 00:00: TABLET(S) [place] 00 BY MOUTH Medical ONCE A Branch DAY. LOSARTAN 50 0 Yes [id number] TAKE ONE [facility] mg tablet 5-09 (1) ity of 00:00: TABLET(S) [place] 00 BY MOUTH Medical ONCE A Branch DAY. CETIRIZINE 0 Yes TAKE ONE [facility] vers 10 mg 5-09 (1) ity of tablet 00:00: TABLET(S) [place] 00 BY MOUTH Medical ONCE A Branch DAY. LOSARTAN 50 2021-0 Yes [id number] TAKE ONE [facility] mg tablet 5-09 (1) ity of 00:00: TABLET(S) [place] 00 BY MOUTH Medical ONCE A Branch DAY. CETIRIZINE 0 Yes TAKE ONE [facility] vers 10 mg 5-09 (1) ity of tablet 00:00: TABLET(S) [place] 00 BY MOUTH Medical ONCE A Branch DAY. LOSARTAN 50 0 Yes [id number] TAKE ONE [facility] mg tablet 5-09 (1) ity of 00:00: TABLET(S) [place] 00 BY MOUTH Medical ONCE A Branch DAY. CETIRIZINE Yes TAKE ONE [facility] vers 10 mg 5-09 (1) ity of tablet 00:00: TABLET(S) [place] 00 BY MOUTH Medical ONCE A Branch DAY. LOSARTAN 50 0 Yes [id number] TAKE ONE [facility] mg tablet 5-09 (1) ity of 00:00: TABLET(S) [place] 00 BY MOUTH Medical ONCE A Branch DAY. CETIRIZINE Yes TAKE ONE [facility] vers 10 mg 5-09 (1) ity of tablet 00:00: TABLET(S) [place] 00 BY MOUTH Medical ONCE A Branch DAY. montelukast 2019-03 Yes 10mg Take 10 mg [facility] 10 mg 2-08 by mouth. ity of tablet 16:24: [address] montelukast 2019-03 Yes 10mg Take 10 mg [facility] 10 mg 2-08 by mouth. ity of tablet 16:24: [address] montelukast 2019-03 Yes 10mg Take 10 mg [facility] 10 mg 2-08 by mouth. ity of tablet 16:24: [address] montelukast 2019-03 Yes 10mg Take 10 mg [facility] 10 mg 2-08 by mouth. ity of tablet 16:24: [address] montelukast 2019-03 Yes 10mg Take 10 mg [facility] 10 mg 2-08 by mouth. ity of tablet 16:24: [address] montelukast 2019-03 Yes 10mg Take 10 mg [facility] 10 mg 2-08 by mouth. ity of tablet 16:24: [address] montelukast 2019-03 Yes 10mg Take 10 mg [facility] 10 mg 2-08 by mouth. ity of tablet 16:24: [address] montelukast 2019-03 Yes 10mg Take 10 mg [facility] 10 mg 2-08 by mouth. ity of tablet 16:24: [address] montelukast 2019-03 Yes 10mg Take 10 mg [facility] 10 mg 2-08 by mouth. ity of tablet 16:24: [address] montelukast 2019-03 Yes 10mg Take 10 mg [facility] 10 mg 2-08 by mouth. ity of tablet 16:24: [address] montelukast 2019-03 Yes 10mg Take 10 mg [facility] 10 mg 2-08 by mouth. ity of tablet 16:24: [address] montelukast 2019-03 Yes 10mg Take 10 mg [facility] 10 mg 2-08 by mouth. ity of tablet 16:24: [address] ibuprofen 2019-03 Yes [id number] 600mg Take 1 [facility] 600 mg 2-03 tablet by ity of tablet 00:00: mouth [place] 00 every 6 Medical (six) Branch hours as needed for Pain (scale 4-6). polyethylen 2019-03 Yes [id number] 17g Take 17 g [facility] e glycol 17 2-03 by mouth ity of gram/dose 00:00: every 24 [place] powder 00 (twenty-fo Medical ur) hours Branch as needed for Constipati on. ibuprofen 2019-03 Yes [id number] 600mg Take 1 [facility] 600 mg 2-03 tablet by ity of tablet 00:00: mouth [place] 00 every 6 Medical (six) Branch hours as needed for Pain (scale 4-6). polyethylen 2019-03 Yes [id number] 17g Take 17 g [facility] e glycol 17 2-03 by mouth ity of gram/dose 00:00: every 24 [place] powder 00 (twenty-fo Medical ur) hours Branch as needed for Constipati on. ibuprofen 2019-03 Yes [id number] 600mg Take 1 [facility] 600 mg 2-03 tablet by ity of tablet 00:00: mouth [place] 00 every 6 Medical (six) Branch hours as needed for Pain (scale 4-6). polyethylen 2019-03 Yes [id number] 17g Take 17 g [facility] e glycol 17 2-03 by mouth ity of gram/dose 00:00: every 24 [place] powder 00 (twenty-fo Medical ur) hours Branch as needed for Constipati on. ibuprofen 2019-03 Yes [id number] 600mg Take 1 [facility] 600 mg 2-03 tablet by ity of tablet 00:00: mouth [place] 00 every 6 Medical (six) Branch hours as needed for Pain (scale 4-6). polyethylen 2020-1 Yes [id number] 17g Take 17 g [facility] e glycol 17 2-03 by mouth ity of gram/dose 00:00: every 24 [place] powder 00 (twenty-fo Medical ur) hours Branch as needed for Constipati on. ibuprofen 2019- Yes [id number] 600mg Take 1 [facility] 600 mg 2-03 tablet by ity of tablet 00:00: mouth [place] 00 every 6 Medical (six) Branch hours as needed for Pain (scale 4-6). polyethylen 2019- Yes [id number] 17g Take 17 g [facility] e glycol 17 2-03 by mouth ity of gram/dose 00:00: every 24 [place] powder 00 (twenty-fo Medical ur) hours Branch as needed for Constipati on. ibuprofen 2019- Yes [id number] 600mg Take 1 [facility] 600 mg 2-03 tablet by ity of tablet 00:00: mouth [place] 00 every 6 Medical (six) Branch hours as needed for Pain (scale 4-6). polyethylen 2019- Yes [id number] 17g Take 17 g [facility] e glycol 17 2-03 by mouth ity of gram/dose 00:00: every 24 [place] powder 00 (twenty-fo Medical ur) hours Branch as needed for Constipati on. ibuprofen 2019- Yes [id number] 600mg Take 1 [facility] 600 mg 2-03 tablet by ity of tablet 00:00: mouth [place] 00 every 6 Medical (six) Branch hours as needed for Pain (scale 4-6). polyethylen 2019-1 Yes [id number] 17g Take 17 g [facility] e glycol 17 2-03 by mouth ity of gram/dose 00:00: every 24 [place] powder 00 (twenty-fo Medical ur) hours Branch as needed for Constipati on. ibuprofen 2019- Yes [id number] 600mg Take 1 [facility] 600 mg 2-03 tablet by ity of tablet 00:00: mouth [place] 00 every 6 Medical (six) Branch hours as needed for Pain (scale 4-6). polyethylen 2020-1 Yes [id number] 17g Take 17 g [facility] e glycol 17 2-03 by mouth ity of gram/dose 00:00: every 24 [place] powder 00 (twenty-fo Medical ur) hours Branch as needed for Constipati on. ibuprofen 2019-03 Yes [id number] 600mg Take 1 [facility] 600 mg 2-03 tablet by ity of tablet 00:00: mouth [place] 00 every 6 Medical (six) Branch hours as needed for Pain (scale 4-6). polyethylen 2019-03 Yes [id number] 17g Take 17 g [facility] e glycol 17 2-03 by mouth ity of gram/dose 00:00: every 24 [place] powder 00 (twenty-fo Medical ur) hours Branch as needed for Constipati on. ibuprofen 2019-03 Yes [id number] 600mg Take 1 [facility] 600 mg 2-03 tablet by ity of tablet 00:00: mouth [place] 00 every 6 Medical (six) Branch hours as needed for Pain (scale 4-6). polyethylen 2019-03 Yes [id number] 17g Take 17 g [facility] e glycol 17 2-03 by mouth ity of gram/dose 00:00: every 24 [place] powder 00 (twenty-fo Medical ur) hours Branch as needed for Constipati on. ibuprofen 2019-03 Yes [id number] 600mg Take 1 [facility] 600 mg 2-03 tablet by ity of tablet 00:00: mouth [place] 00 every 6 Medical (six) Branch hours as needed for Pain (scale 4-6). polyethylen 2019-03 Yes [id number] 17g Take 17 g [facility] e glycol 17 2-03 by mouth ity of gram/dose 00:00: every 24 [place] powder 00 (twenty-fo Medical ur) hours Branch as needed for Constipati on. ibuprofen 2019-03 Yes [id number] 600mg Take 1 [facility] 600 mg 2-03 tablet by ity of tablet 00:00: mouth [place] 00 every 6 Medical (six) Branch hours as needed for Pain (scale 4-6). polyethylen 2019-03 Yes [id number] 17g Take 17 g [facility] e glycol 17 2-03 by mouth ity of gram/dose 00:00: every 24 [place] powder 00 (twenty-fo Medical ur) hours Branch as needed for Constipati on. triamcinolo 2019-03 Yes [id number] Apply to [place] [facility] ne 0-06 area(s) 2 ity of acetonide 00:00: (two) [place] 0.1 % 00 times Medical ointment daily. Branch olopatadine 2019-03 Yes [id number] 1[drp] Place 1 [facility] (PATADAY) 0-06 9102 Drop in ity of 0.1 % 00:00: both eyes [place] ophthalmic 00 2 (two) Medica l solution times Branch daily. triamcinolo 2019- Yes [id number] Apply to [facility] ne 0-06 area(s) 2 ity of acetonide 00:00: (two) [place] 0.1 % 00 times Medical ointment daily. Branch olopatadine 2019-03 Yes [id number] 1[drp] Place 1 [facility] (PATADAY) 0-06 9102 Drop in ity of 0.1 % 00:00: both eyes [place] ophthalmic 00 2 (two) Medica l solution times Branch daily. triamcinolo 2019- Yes [id number] Apply to [facility] ne 0-06 area(s) 2 ity of acetonide 00:00: (two) [place] 0.1 % 00 times Medical ointment daily. Branch olopatadine 2019-03 Yes [id number] 1[drp] Place 1 [facility] (PATADAY) 0-06 9102 Drop in ity of 0.1 % 00:00: both eyes [place] ophthalmic 00 2 (two) Medica l solution times Branch daily. triamcinolo 2019- Yes [id number] Apply to [facility] ne 0-06 area(s) 2 ity of acetonide 00:00: (two) [place] 0.1 % 00 times Medical ointment daily. Branch olopatadine 2019-03 Yes [id number] 1[drp] Place 1 [facility] (PATADAY) 0-06 9102 Drop in ity of 0.1 % 00:00: both eyes [place] ophthalmic 00 2 (two) Medica l solution times Branch daily. triamcinolo 2019- Yes [id number] Apply to [facility] ne 0-06 area(s) 2 ity of acetonide 00:00: (two) [place] 0.1 % 00 times Medical ointment daily. Branch olopatadine 2019-03 Yes [id number] 1[drp] Place 1 [facility] (PATADAY) 0-06 9102 Drop in ity of 0.1 % 00:00: both eyes [place] ophthalmic 00 2 (two) Medica l solution times Branch daily. triamcinolo 2020- Yes [id number] Apply to [facility] ne 0-06 area(s) 2 ity of acetonide 00:00: (two) [place] 0.1 % 00 times Medical ointment daily. Branch olopatadine 2019-03 Yes [id number] 1[drp] Place 1 [facility] (PATADAY) 0-06 9102 Drop in ity of 0.1 % 00:00: both eyes [place] ophthalmic 00 2 (two) Medica l solution times Branch daily. triamcinolo 2019- Yes [id number] Apply to [facility] ne 0-06 area(s) 2 ity of acetonide 00:00: (two) [place] 0.1 % 00 times Medical ointment daily. Branch olopatadine 2019-03 Yes [id number] 1[drp] Place 1 [facility] (PATADAY) 0-06 9102 Drop in ity of 0.1 % 00:00: both eyes [place] ophthalmic 00 2 (two) Medica l solution times Branch daily. triamcinolo 2019- Yes [id number] Apply to [facility] ne 0-06 area(s) 2 ity of acetonide 00:00: (two) [place] 0.1 % 00 times Medical ointment daily. Branch olopatadine 2019-03 Yes [id number] 1[drp] Place 1 [facility] (PATADAY) 0-06 9102 Drop in ity of 0.1 % 00:00: both eyes [place] ophthalmic 00 2 (two) Medica l solution times Branch daily. triamcinolo 2019- Yes [id number] Apply to [facility] ne 0-06 area(s) 2 ity of acetonide 00:00: (two) [place] 0.1 % 00 times Medical ointment daily. Branch olopatadine 2019-03 Yes [id number] 1[drp] Place 1 [facility] (PATADAY) 0-06 9102 Drop in ity of 0.1 % 00:00: both eyes [place] ophthalmic 00 2 (two) Medica l solution times Branch daily. triamcinolo 2019- Yes [id number] Apply to [facility] ne 0-06 area(s) 2 ity of acetonide 00:00: (two) [place] 0.1 % 00 times Medical ointment daily. Branch olopatadine 2019-03 Yes [id number] 1[drp] Place 1 [facility] (PATADAY) 0-06 9102 Drop in ity of 0.1 % 00:00: both eyes [place] ophthalmic 00 2 (two) Medica l solution times Branch daily. triamcinolo 2019- Yes [id number] Apply to [facility] ne 0-06 area(s) 2 ity of acetonide 00:00: (two) [place] 0.1 % 00 times Medical ointment daily. Branch olopatadine 2019-03 Yes [id number] 1[drp] Place 1 [facility] (PATADAY) 0-06 9102 Drop in ity of 0.1 % 00:00: both eyes [place] ophthalmic 00 2 (two) Medica l solution times [place] daily. triamcinolo 2019-03 Yes [id number] Apply to [facility] ne 0-06 area(s) 2 ity of acetonide 00:00: (two) [place] 0.1 % 00 times Medical ointment daily. Branch olopatadine 2019-03 Yes [id number] 1[drp] Place 1 [facility] (PATADAY) 0-06 9102 Drop in ity of 0.1 % 00:00: both eyes [place] ophthalmic 00 2 (two) Medica l solution times [place] daily. aspirin 81 2020-0 Yes 81mg Take 81 mg U nivers mg chewable 9-28 by mouth ity of tablet 00:00: daily. [address] aspirin 81 2020-0 Yes 81mg Take 81 mg U nivers mg chewable 9-28 by mouth ity of tablet 00:00: daily. [address] aspirin 81 2020-0 Yes 81mg Take 81 mg U nivers mg chewable 9-28 by mouth ity of tablet 00:00: daily. [address] aspirin 81 2020-0 Yes 81mg Take 81 mg U nivers mg chewable 9-28 by mouth ity of tablet 00:00: daily. [address] aspirin 81 2020-0 Yes 81mg Take 81 mg U nivers mg chewable 9-28 by mouth ity of tablet 00:00: daily. [address] aspirin 81 2020-0 Yes 81mg Take 81 mg U nivers mg chewable 9-28 by mouth ity of tablet 00:00: daily. [place] [facility] aspirin 81 2020-0 Yes 81mg Take 81 mg U nivers mg chewable 9-28 by mouth ity of tablet 00:00: daily. [place] [facility] aspirin 81 2020-0 Yes 81mg Take 81 mg U nivers mg chewable 9-28 by mouth ity of tablet 00:00: daily. [place] [facility] aspirin 81 2020-0 Yes 81mg Take 81 mg U nivers mg chewable 9-28 by mouth ity of tablet 00:00: daily. [place] [facility] aspirin 81 2020-0 Yes 81mg Take 81 mg U nivers mg chewable 9-28 by mouth ity of tablet 00:00: daily. [place] [facility] aspirin 81 2020-0 Yes 81mg Take 81 mg U nivers mg chewable 9-28 by mouth ity of tablet 00:00: daily. [place] [facility] aspirin 81 2020-0 Yes 81mg Take 81 mg U nivers mg chewable 9-28 by mouth ity of tablet 00:00: daily. [place] [facility] ascorbic 2020-0 Yes [id number] 500mg Take 1 [facility] acid, 8- [id number] tablet by ity of vitamin C, 00:00: mouth [place] (VITAMIN C) 00 daily. Medica l 500 mg Branch tablet ergocalcife 2020-0 Yes [id number] Take 1 [facility] rol, 8- [id number] capsule by ity of vitamin d2, 00:00: mouth [place] 1,250 mcg 00 weekly. Medical (50,000 Branch unit) capsule ascorbic 2020-0 Yes [id number] 500mg Take 1 [facility] acid, 8- [id number] tablet by ity of vitamin C, 00:00: mouth [place] (VITAMIN C) 00 daily. Medica l 500 mg Branch tablet ergocalcife 2020-0 Yes [id number] Take 1 [facility] rol, 8-21 [id number] capsule by ity of vitamin d2, 00:00: mouth [place] 1,250 mcg 00 weekly. Medical (50,000 Branch unit) capsule ascorbic 2020-0 Yes [id number] 500mg Take 1 [facility] acid, 8-21 [id number] tablet by ity of vitamin C, 00:00: mouth [place] (VITAMIN C) 00 daily. Medica l 500 mg Branch tablet ergocalcife 2020-0 Yes [id number] Take 1 [facility] rol, 8-21 [id number] capsule by ity of vitamin d2, 00:00: mouth [place] 1,250 mcg 00 weekly. Medical (50,000 Branch unit) capsule ascorbic 2020-0 Yes [id number] 500mg Take 1 [facility] acid, 8-21 [id number] tablet by ity of vitamin C, 00:00: mouth [place] (VITAMIN C) 00 daily. Medica l 500 mg Branch tablet ergocalcife 2020-0 Yes [id number] Take 1 [facility] rol, 8-21 [id number] capsule by ity of vitamin d2, 00:00: mouth [place] 1,250 mcg 00 weekly. Medical (50,000 Branch unit) capsule ascorbic 2020-0 Yes [id number] 500mg Take 1 [facility] acid, 8-21 [id number] tablet by ity of vitamin C, 00:00: mouth [place] (VITAMIN C) 00 daily. Medica l 500 mg Branch tablet ergocalcife 2020-0 Yes [id number] Take 1 [facility] rol, 8- [id number] capsule by ity of vitamin d2, 00:00: mouth [place] 1,250 mcg 00 weekly. Medical (50,000 Branch unit) capsule ascorbic 2020-0 Yes [id number] 500mg Take 1 [facility] acid, 8-21 [id number] tablet by ity of vitamin C, 00:00: mouth [place] (VITAMIN C) 00 daily. Medica l 500 mg Branch tablet ergocalcife 2020-0 Yes [id number] Take 1 [facility] rol, 8-21 [id number] capsule by ity of vitamin d2, 00:00: mouth [place] 1,250 mcg 00 weekly. Medical (50,000 Branch unit) capsule ascorbic 2020-0 Yes [id number] 500mg Take 1 [facility] acid, 8-21 [id number] tablet by ity of vitamin C, 00:00: mouth [place] (VITAMIN C) 00 daily. Medica l 500 mg Branch tablet ergocalcife 2020-0 Yes [id number] Take 1 [facility] rol, 8-21 [id number] capsule by ity of vitamin d2, 00:00: mouth [place] 1,250 mcg 00 weekly. Medical (50,000 Branch unit) capsule ascorbic 2020-0 Yes [id number] 500mg Take 1 [facility] acid, 8-21 [id number] tablet by ity of vitamin C, 00:00: mouth [place] (VITAMIN C) 00 daily. Medica l 500 mg Branch tablet ergocalcife 2020-0 Yes [id number] Take 1 [facility] rol, 8-21 [id number] capsule by ity of vitamin d2, 00:00: mouth [place] 1,250 mcg 00 weekly. Medical (50,000 Branch unit) capsule ascorbic 2020-0 Yes [id number] 500mg Take 1 [facility] acid, 8-21 [id number] tablet by ity of vitamin C, 00:00: mouth [place] (VITAMIN C) 00 daily. Medica l 500 mg Branch tablet ergocalcife 2020-0 Yes [id number] Take 1 [facility] rol, 8-21 [id number] capsule by ity of vitamin d2, 00:00: mouth [place] 1,250 mcg 00 weekly. Medical (50,000 Branch unit) capsule ascorbic 2020-0 Yes [id number] 500mg Take 1 [facility] acid, 8-21 [id number] tablet by ity of vitamin C, 00:00: mouth [place] (VITAMIN C) 00 daily. Medica l 500 mg Branch tablet ergocalcife 2020-0 Yes [id number] Take 1 [facility] rol, 8-21 [id number] capsule by ity of vitamin d2, 00:00: mouth [place] 1,250 mcg 00 weekly. Medical (50,000 Branch unit) capsule ascorbic 2020-0 Yes [id number] 500mg Take 1 [facility] acid, 8-21 [id number] tablet by ity of vitamin C, 00:00: mouth [place] (VITAMIN C) 00 daily. Medica l 500 mg Branch tablet ergocalcife 2020-0 Yes [id number] Take 1 [facility] rol, 8-21 [id number] capsule by ity of vitamin d2, 00:00: mouth [place] 1,250 mcg 00 weekly. Medical (50,000 Branch unit) capsule ascorbic 2020-0 Yes [id number] 500mg Take 1 [facility] acid, 8-21 [id number] tablet by ity of vitamin C, 00:00: mouth [place] (VITAMIN C) 00 daily. Medica l 500 mg Branch tablet ergocalcife 2020-0 Yes [id number] Take 1 [facility] rol, 8-21 [id number] capsule by ity of vitamin d2, 00:00: mouth [place] 1,250 mcg 00 weekly. Medical (50,000 Branch unit) capsule Immunizations Ordered Filled Immunization Date Status Comments [facility] e Immunization Name Name SARS-COV-2 COVID-19 2021-12-31 Completed Unive rsity of CATA-SUCROSE 00:00:00 [place] Medica l VACCINE 12 YRS+, Branch BIVALENT 0.3ML, IM, (PFIZER PAL TOP BOOSTER) SARS-COV-2 COVID-19 2021-12-31 Completed Unive rsity of CATA-SUCROSE 00:00:00 [place] Medica l VACCINE 12 YRS+, Branch BIVALENT 0.3ML, IM, (PFIZER PAL TOP BOOSTER) SARS-COV-2 COVID-19 2021-07-22 Completed Unive rsity of PFIZER CATA-SUCROSE 00:00:00 [place] [facility] VACCINE (PAL TOP) Branch SARS-COV-2 COVID-19 2021-07-22 Completed Unive rsity of PFIZER CATA-SUCROSE 00:00:00 [place] [facility] VACCINE (PAL TOP) Branch SARS-COV-2 COVID-19 2021-07-22 Completed Unive rsity of PFIZER CATA-SUCROSE 00:00:00 [place] [facility] VACCINE (PAL TOP) Branch SARS-COV-2 COVID-19 2021-07-22 Completed Unive rsity of PFIZER CATA-SUCROSE 00:00:00 [place] [facility] VACCINE (PAL TOP) Branch SARS-COV-2 COVID-19 2021-07-22 Completed Unive rsity of PFIZER CATA-SUCROSE 00:00:00 [place] [facility] VACCINE (PAL TOP) Branch SARS-COV-2 COVID-19 2021-07-22 Completed Unive rsity of PFIZER CATA-SUCROSE 00:00:00 [place] [facility] VACCINE (PAL TOP) Branch SARS-COV-2 COVID-19 2021-07-22 Completed Unive rsity of PFIZER CATA-SUCROSE 00:00:00 [place] [facility] VACCINE (PAL TOP) Branch SARS-COV-2 COVID-19 2021-07-22 Completed Unive rsity of PFIZER CATA-SUCROSE 00:00:00 [place] [facility] VACCINE (PAL TOP) Branch SARS-COV-2 COVID-19 2021-07-22 Completed Unive rsity of PFIZER CATA-SUCROSE 00:00:00 [place] [facility] VACCINE (PAL TOP) Branch SARS-COV-2 COVID-19 2021-07-22 Completed Unive rsity of PFIZER CATA-SUCROSE 00:00:00 [place] [facility] VACCINE (PAL TOP) Branch SARS-COV-2 COVID-19 2021-07-22 Completed Unive rsity of PFIZER CATA-SUCROSE 00:00:00 [place] [facility] VACCINE (PAL TOP) Branch SARS-COV-2 COVID-19 2021-07-22 Completed Unive rsity of PFIZER CATA-SUCROSE 00:00:00 [place] [facility] VACCINE (PAL TOP) Branch SARS-COV-2 COVID-19 2020-04-20 Completed Unive rsity of MODERNA VACCINE 00:00:00 [place] [facility] ical Branch SARS-COV-2 COVID-19 2020-04-20 Completed Unive rsity of MODERNA VACCINE 00:00:00 [place] [facility] ical Branch SARS-COV-2 COVID-19 2020-04-20 Completed Unive rsity of MODERNA VACCINE 00:00:00 [place] [facility] ical Branch SARS-COV-2 COVID-19 2020-04-20 Completed Unive rsity of MODERNA VACCINE 00:00:00 [place] [facility] ical Branch SARS-COV-2 COVID-19 2020-04-20 Completed Unive rsity of MODERNA VACCINE 00:00:00 [place] [facility] ical Branch SARS-COV-2 COVID-19 2020-04-20 Completed Unive rsity of MODERNA VACCINE 00:00:00 [place] [facility] ical Branch SARS-COV-2 COVID-19 2020-04-20 Completed Unive rsity of MODERNA VACCINE 00:00:00 [place] [facility] ical Branch SARS-COV-2 COVID-19 2020-04-20 Completed Unive rsity of MODERNA VACCINE 00:00:00 [place] [facility] ical Branch SARS-COV-2 COVID-19 2020-04-20 Completed Unive rsity of MODERNA VACCINE 00:00:00 [place] [facility] ical Branch SARS-COV-2 COVID-19 2020-04-20 Completed Unive rsity of MODERNA VACCINE 00:00:00 [place] [facility] ical Branch SARS-COV-2 COVID-19 2020-04-20 Completed Unive rsity of MODERNA 12+ YRS 00:00:00 [place] [facility] ical VACCINE Branch SARS-COV-2 COVID-19 2020-04-20 Completed Unive rsity of MODERNA 12+ YRS 00:00:00 [place] [facility] ical VACCINE Branch SARS-COV-2 COVID-19 2020-03-23 Completed Unive rsity of MODERNA VACCINE 00:00:00 [place] [facility] ical Branch SARS-COV-2 COVID-19 2020-03-23 Completed Unive rsity of MODERNA VACCINE 00:00:00 [place] [facility] ical Branch SARS-COV-2 COVID-19 2020-03-23 Completed Unive rsity of MODERNA VACCINE 00:00:00 [place] [facility] ical Branch SARS-COV-2 COVID-19 2020-03-23 Completed Unive rsity of MODERNA VACCINE 00:00:00 [place] [facility] ical Branch SARS-COV-2 COVID-19 2020-03-23 Completed Unive rsity of MODERNA VACCINE 00:00:00 [place] [facility] ical Branch SARS-COV-2 COVID-19 2020-03-23 Completed Unive rsity of MODERNA VACCINE 00:00:00 [place] [facility] ical Branch SARS-COV-2 COVID-19 2020-03-23 Completed Unive rsity of MODERNA VACCINE 00:00:00 [place] [facility] ical Branch SARS-COV-2 COVID-19 2020-03-23 Completed Unive rsity of MODERNA VACCINE 00:00:00 [place] [facility] ical Branch SARS-COV-2 COVID-19 2020-03-23 Completed Unive rsity of [place] VACCINE 00:00:00 [facility] SARS-COV-2 COVID-19 2020-03-23 Completed Unive rsity of [place] VACCINE 00:00:00 [facility] SARS-COV-2 COVID-19 2020-03-23 Completed Unive rsity of MOD[place] 12+ YRS 00:00:00 [facility] ical VACCINE Branch SARS-COV-2 COVID-19 2020-03-23 Completed Unive rsity of MODERNA 12+ YRS 00:00:00 [facility] ical VACCINE Branch FLUCELVAX QUAD PF 2020-01-[address] 00:00:00 Hospital Procedures Procedure Date / Time Performing Clinician Source Performed SARS-COV-2 COVID-19 2021-12-31 14:58:27 Doctor Unassigned, [facility] [place] CATA-SUCROSE VACCINE 12 [place] [facility] YRS+, BIVALENT 0.3ML, IM, (PFIZER PAL TOP BOOSTER) 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 2021-09-06 05:01:00 Doctor Unassigned, [facility] [place] [facility] Plan of Care Planned Activity Planned Date Details Comments Source Future Scheduled 2022-03-09 Pneumococcal Vaccine: [facility] Test 03:59:28 Pediatrics (0 to 5 Years) and At-Risk Patients (6 to 64 Years) (1 - PCV) [code = Pneumococcal Vaccine: Pediatrics (0 to 5 Years) and At-Risk Patients (6 to 64 Years) (1 - PCV)] Future Scheduled 2022-03-09 [facility] 03:59:28 SCREENING [code = BREAST CANCER SCREENING] Future Scheduled 2022-03-09 COVID-19 VACCINE (3 - [facility] Test 03:59:28 Booster for Moderna series) [code = COVID-19 VACCINE (3 - Booster for Moderna series)] Future Scheduled 2022-03-09 [facility]ZA [facility]ACCINE [facility] 03:59:28 [code = INFLUENZA VACCINE] Future Scheduled 2022-03-09 [facility] Test 03:59:28 malignant neoplasm of cervix (procedure) [code = 794228100] Encounters Start End Encounter Admission Attending Care Care Encounter Source Date/Time Date/Time Type Type Clinicians Facility Department ID 2021-01-22 Inpatient R AYAZ MOULTON [facility] LYNDA [id number] Univers 07:33:32 ity [facility] 2021-01-[address] [facility] [id number] Univers 00:21:27 ity [facility] 2021-01-[address] [facility] [id number] Univers 12:43:24 ity [facility] 2021-01-[address] [facility] [id number] Univers 12:12:04 ity [facility] 2021-01-[address] [facility] [id number] Univers [facility] 2022-03-08 2022-03-08 Scottie Whitaker [facility] 1.2.840.114 [id number] Univers 00:00:00 00:00:00 Keegan MCCLELLAN 350.1.13.10 i ty yolanda MÁRQUEZ 4.2.7.2.686 Rio BERRIOS [phone] Wi dical [address] 2021-12-31 2021-12-31 Outpatient R LAUREANO [facility] [id number] Univers 09:30:00 10:04:54 PRETTYRUDDY hernández [facility] 2021-12-31 2021-12-31 Imm/Inj Vaccine, Ang Db [facility] 1.2.840 .114 [id number] Univers 09:30:00 09:40:00 Visit Unknown, Attending HEALTH 350.1.13.10 ity yolanda [facility] 4.2.7.2.686 Javier as JEREMY?BLEA [phone] [address] MEDICAL OFFICE BUILDING 2021-12-03 2021-12-03 Scottie Layne, 1.2.840.1 [id number] Methodi 00:00:00 00:00:00 Manpreet 35388.1.1 769 [facility] 3.430.2.7 Hospit a .3.442777 l .8 2021-11-18 2021-11-18 [id number] Univers 14:40:00 14:40:00 KEEGAN christine [facility] 2021-11-15 2021-11-15 [facility] 1.2.840.114 [id number] Univers 00:00:00 00:00:00 Keegan MCCLELLAN 350.1.13.10 i ty of [facility] 4.2.[place] [phone] [address] 2021-10-31 2021-10-31 Telephone [facility] 1.2.840.114 [id number] Univers 00:00:00 00:00:00 Keegan MCCLELLAN 350.1.13.10 i ty of [facility] 4.2.7.2.686 [place] [phone] [address] 2021-10-11 2021-10-11 Telephone [facility] 1.2.840.114 [id number] Univers 00:00:00 00:00:00 Joelle MCCLELLAN 350.1.13.10 ity of [place].2.686 [place] [phone] Wi dical NAL [address] [facility] 2021-10-10 2021-10-10 [facility] 1.2.840.114 [id number] Univers 00:00:00 00:00:00 Joelle MCCLELLAN 350.1.13.10 ity of [place] 4.2.7.2.686 [place] [phone] Wi dical NAL [address] [facility] 2021-10-03 2021-10-03 Patient [facility] 1.2.840.114 [id number] Univers 00:00:00 00:00:00 Secure Msg Keegan MCCLELLAN 350.1.13.10 ity of [place] 4.2.7.2.686 [place] [phone] Wi dical NAL 044 [facility] 2021-09-30 2021-09-30 [facility] 1.2.840.114 [id number] Univers 00:00:00 00:00:00 Keegan MCCLELLAN 350.1.13.10 i ty of [place] 4.2.7.2.686 [place] [phone] Wi dical NAL 044 [facility] 2021-09-29 2021-09-29 Telephone [facility] 1.2.840.114 [id number] Univers 00:00:00 00:00:00 Keegan MCCLELLAN 350.1.13.10 i ty of [place] 4.2.7.2.686 [place] [phone] Wi dical NAL 044 [facility] 2021-09-27 2021-09-27 Telephone [facility] 1.2.840.114 [id number] Univers 00:00:00 00:00:00 Keegan MCCLELLAN 350.1.13.10 i ty of [place].2.7.2.[place] [phone] Wi dical NAL 044 [facility] 2021-09-13 2021-09-13 Patient [facility] 1.2.840.114 [id number] Univers 00:00:00 00:00:00 Secure Msg Keegan MCCLELLAN 350.1.13.10 ity of [place] 4.2.7.2.686 [place] [phone] Wi dical NAL [address] [place] [address] 2021-09-06 2021-09-06 Telephone [facility] 1.2.840.114 [id number] Univers 00:00:00 00:00:00 Keegan MCCLELLAN 350.1.13.10 i ty of [place] 4.2.7.2.686 [place] [phone] Wi dicms NAL [address] [place] [address] 2021-09-06 2021-09-06 Telephone [facility] 1.2.840.114 [id number] Univers 00:00:00 00:00:00 Keegan MCCLELLAN 350.1.13.10 i ty of [place] 4.2.7.2.[place] [phone] [address] 2021-09-06 2021-09-06 Orders Doctor GARFIELD 1.2.840.114 [id number] Univers 00:00:00 00:00:00 Only Unassigned, GE 350.1.13.10 ity of [place] [facility] 4.2.7.2.686 Javier as [phone] [address] 2021-09-05 2021-09-05 Refill [facility] 1.2.840.114 [id number] Univers 00:00:00 00:00:00 Keegan MCCLELLAN 350.1.13.10 i ty of [place] 4.2.7.2.686 [place] [phone] Wi dical NAL [address] [place] [address] 2021-08-29 2021-08-29 Patient [facility] 1.2.840.114 [id number] Univers 00:00:00 00:00:00 Secure Msg Keegan MCCLELLAN 350.1.13.10 ity of [place] 4.2.7.2.686 [place] [phone] Wi dical NAL [address] [place] [address] 2021-08-29 2021-08-29 Telephone [facility] 1.2.840.114 [id number] Univers 00:00:00 00:00:00 Keegan MCCLELLAN 350.1.13.10 i ty of [facility] 4.2.7.2.686 [place] [phone] [address] 2021-08-23 2021-08-23 Telephone [facility] 1.2.840.114 [id number] Univers 00:00:00 00:00:00 Keegan MCCLELLAN 350.1.13.10 i ty of [facility] 4.2.7.2.686 [place] [phone] [address] 2021-08-23 2021-08-23 [facility] 1.2.840.114 [id number] Univers 00:00:00 00:00:00 Keegan MCCLELLAN 350.1.13.10 i ty [place] 4.2.[place].2.[place] [phone] [address] 2021-08-18 2021-08-18 [facility] [id number] Univers 10:40:00 12:36:28 KEEGAN hernández [facility] 2021-08-18 2021-08-18 [address]840.114 [id number] [id number] [facility] 10:40:00 12:36:28 Visit Keegan MCCLELLAN 350.1.13.10 i ty of [place] 4.2.7.2.[place] [phone] [address] 2021-08-18 2021-08-18 Outpatient [facility] [id number] Univers 10:40:00 12:36:28 KEEGAN hernández [facility] 2021-08-18 2021-08-18 Telephone [facility] 1.2.840.114 [id number] Univers 00:00:00 00:00:00 Keegan MCCLELLAN 350.1.13.10 i ty of [facility] 4.2.7.2.686 [place] [phone] [address] 2021-07-22 2021-07-22 Imm/Inj Vaccine, Adc Family Medicine [facility] 1.2.840.114 [id number] Univers 08:30:00 08:40:00 Visit Jerod Freire 350.1.13 .10 ity of [place] 4.2.7.2.[place] [phone] Wi dical NAL [address] [place] [address] 2021-07-22 2021-07-22 Outpatient R MOUNA [facility] [id number] Univers 08:30:00 08:30:00 JEROD hernández [facility] 2021-07-19 2021-07-19 Laboratory Only, Adc Test [facility] 1.2.840. 114 [id number] Univers 10:45:00 11:00:00 Only Bill Manrique 350.1.13.10 ity of [place] 4.2.7.2.686 [place] [phone] [address] 2021-07-19 2021-07-19 Outpatient R AARTI [facility] [id number] Univers 10:45:00 10:45:00 BILL [facility] 2021-07-19 2021-07-19 Orders Doctor GARFIELD 1.2.840.114 [id number] Univers 00:00:00 00:00:00 Only Unassigned, GE 350.1.13.10 ity of [place] [facility] 4.2.7.2.686 Javier as [phone] [facility] [address] [place] 2021-03-31 2021-03-31 Laboratory Only, [facility] Test [facility] 1.2.840. 114 [id number] Univers 09:15:00 09:30:00 Only Bill Manrique 350.1.13.10 ity of [place] Fre[place] 4.2.7.2.686 [facility] [phone] [facility] [address] [place] 2021-03-31 2021-03-31 Outpatient R MOUNA [facility] [id number] Univers 09:15:00 09:15:00 JEROD hernández [facility] 2021-03-29 2021-03-29 Outpatient R AYAZ MOULTON [facility] [id number] Univers 15:30:00 15:30:[facility] 2021-03-29 2021-03-29 Outpatient R AYAZ MOULTON [facility] [id number] Univers 15:30:00 15:30:00 [facility] 2021-02-07 2021-02-07 Laboratory Only, [facility] Uc Test [facility] 1.2.8 40.114 [id number] Univers 17:13:43 17:28:43 Only Unknown, Attending YAEL 350.1.13.10 [facility] 4.2.7.2.686 [place] [facility] [phone] [address] [place] 2021-02-07 2021-02-07 Outpatient R PRITI [facility] [id number] Univers 17:15:00 17:25:05 RUI hernández o f [facility] 2021-02-07 2021-02-07 Outpatient R JERRI [facility] [id number] Univers 17:15:00 17:15:00 ATTENDING [facility] 2021-02-01 2021-02-01 Outpatient [facility] [id number] [place] 00:00:00 00:00:00 A, MOHAMMED 970 Me odi 2020-10-25 2020-10-26 Emergency EDDA, [facility] [id number] 633 [place] 00:00:00 00:00:00 LYNN 503 Method i 2020-10-24 2020-10-24 Workers' Compensation Claims Examiner Lab, [facility] Pob I [facility] 1.2. 840.114 [id number] Univers 20:32:13 20:52:13 Visit Dean Farias [facility] 350.1.13. [address] [facility] 4.2.7.2.686 Javier [facility] [phone] [place] [address] Branch Office Building One 2020-10-24 2020-10-24 Outpatient R DINORA [facility] [id number] Univers 20:40:00 20:40:00 [facility] 2020-10-20 2020-10-20 Outpatient RADHA [facility] [id number] [place] 00:00:00 00:00:00 MANPREET 803 Method i 2020-10-16 2020-10-16 Emergency MONSE, [facility] [id number] [place] 00:00:00 00:00:00 BOBBY 663 Method i 2020-09-02 2020-09-02 Outpatient RADHA, [facility] [id number] [place] 00:00:00 00:00:00 MANPREET 829 Method i 2020-08-09 2020-08-09 Patient [facility] 1.2.840.114 [id number] [facility] 00:00:00 00:00:00 Secure [facility] 350.1.13.10 ity of [place] 4.2.7.2.686 Javier as Professio [phone] Wi dical nal [address] [place] [address] 2020-08-03 2020-08-03 Orders Doctor GARFIELD 1.2.840.114 [id number] [facility] 00:00:00 00:00:00 Only Unassigned, GE 350.1.13.10 [facility] 4.2.7.2.686 Javier as [phone] [facility] [address] [place] 2020-08-01 2020-08-01 Refill [facility] 1.2.840.114 [id number] [facility] 00:00:00 00:00:00 [facility] 350.1.13.10 it y of [place] 4.2.7.2.686 Javier as Professio [phone] Wi dical nal [address] [facility] 2020-07-20 2020-07-20 Outpatient [facility] [id number] [place] 00:00:00 00:00:00 A, MOHAMMED 839 Me thodi 2020-07-09 2020-07-09 Outpatient [facility] [id number] [place] 00:00:00 00:00:00 A, MOHAMMED 910 Me thodi 2020-07-05 2020-07-05 Outpatient SANYA, [facility] [id number] [place] 00:00:00 00:00:00 RENETTA 845 Method i 2020-06-25 2020-06-25 Refill Rafita, [facility] 1.2.840.114 [id number] Univers 00:00:00 00:00:00 [facility] 350.1.13.10 i ty of [place] 4.2.7.2.686 Javier as Professio [phone] Wi dical nal [address] [place] Office [facility] One 2020-06-21 2020-06-21 Outpatient [facility] [id number] [place] 00:00:00 00:00:00 A, JAXTORSTENED 874 Wi thodi 2020-06-16 2020-06-16 [facility] 1.2.840.114 [id number] [facility] 00:00:00 00:00:00 [facility] 350.1.13.10 it y of [place] 4.2.7.2.686 Javier as Professio [phone] Wi dical nal 044 [facility] One 2020-06-09 2020-06-09 Outpatient SAVJANI, [facility] [id number] [place] 00:00:00 00:00:00 MAUSHMI 588 Method i 2020-05-26 2020-05-26 Outpatient SAVJANI, [facility] [id number] [place] 00:00:00 00:00:00 MAUSHMI 817 Method i 2020-05-26 2020-05-26 Outpatient SAVJANI, [facility] [id number] [place] 00:00:00 00:00:00 MAUSHMI 040 Method i 2020-05-26 2020-05-26 Telephone [facility] 1.2.840.114 [id number] [facility] 00:00:00 00:00:00 [facility] 350.1.13.10 i ty of [place] 4.2.7.2.686 Javier as Professio [phone] Wi dical nal 044 [facility] One 2020-05-20 2020-05-20 Telephone Stuart, [facility] 1.2.498.679 [id number] Univers 00:00:00 00:00:00 [facility] 350.1.13.10 it y of [place] 4.2.7.2.686 Javier as Professio [phone] Wi dicms nal [address] [place] [address] Office [facility] 2020-05-20 2020-05-20 Patient Rafita [facility] 1.2.840.114 [id number] Univers 00:00:00 00:00:00 Secure Msg [facility] 350.1.13.10 ity of [place] 4.2.7.2.686 Javier as Professio [phone] Wi dicms nal [address] [place] [address] Office Building One 2020-05-18 2020-05-18 Workers' Compensation Claims Examiner Lab, [facility] Pob I [facility] 1.2. 840.114 [id number] Univers 08:49:27 09:10:56 Visit Geovanna [facility] 350.1.13.10 ity of [place] 4.2.7.2.686 Javier as Professio [phone] Wi dicms nal [address] [place] [address] Office [facility] 2020-05-18 2020-05-18 Workers' Compensation Claims Examiner Lab, [facility] 1.2.840.114 [id number] 08:49:27 09:10:56 Visit [facility] Pob I Health 350.1.13.10 [place] 4.2.7.2.686 Professio [phone] nal [facility] Office [facility] 2020-05-18 2020-05-18 Urgent Provider, [facility] 1.2.840.114 [id number] Univers 08:02:36 08:49:45 Care Aleksandra [facility] 350.1.13.10 ity of [place] 4.2.7.2.686 Javier as Professio [phone] [facility] nal [address] [place] [address] Office [facility] 2020-05-18 2020-05-18 Outpatient Carolyne DAVIDSON [facility] [id number] Univers 08:00:00 08:00:00 ALEKSANDRA hernández [facility] 2020-05-18 2020-05-18 Outpatient Carolyne DAVIDSON [facility] [id number] Univers 08:00:00 08:00:00 ALEKSANDRA hernández [facility] 2020-04-22 2020-04-22 Scottie Judge [facility] 1.2.840.114 [id number] Univers 00:00:00 00:00:00 [facility] 350.1.13.10 it y of [place] 4.2.7.2.686 Javier as Professio [phone] [address] 2020-04-20 2020-04-20 Outpatient R FOZIA [facility] [id number] Univers 08:50:00 08:50:00 PLACIDO ity of [facility] 2020-03-29 2020-03-29 Outpatient R AYAZ MOULTON [facility] [id number] Univers 16:15:00 16:15:00 ity of [facility] 2020-03-25 2020-03-25 Workers' Compensation Claims Examiner Lab, Adc Fam Pob I [facility] 1.. 840.114 [id number] Univers 08:35:02 08:50:02 Visit Eula rGaff [facility] 350.1.13.10 ity of [place] 4.2.7.2.686 Javier as Professio [phone] [address] 2020-03-25 2020-03-25 Outpatient R PRERNA [facility] [id number] Univers 08:30:00 08:30:00 EULA ity [facility] 2020-03-23 2020-03-23 Outpatient R FOZIA [facility] [id number] Univers 10:00:00 10:00:00 PLACIDO ity of [facility] 2020-03-17 2020-03-17 Outpatient R AYAZ MOULTON [facility] [id number] Univers 09:00:00 09:00:00 ity of [facility] 2020-03-14 2020-03-14 [facility] 1.2.840.114 [id number] Univers 00:00:00 00:00:00 [facility] 350.1.13.10 it y of [place] 4.2.7.2.686 Javier as Professio [phone] [address] 2020-03-11 2020-03-11 [facility] 1.2.840.114 [id number] Univers 00:00:00 00:00:00 [facility] 350.1.13.10 it y of [place] 4.2.7.2.686 Javier as Professio [phone] Wi dical [facility] [address] [place] Office Building One 2020-03-10 2020-03-10 Orders Doctor GARFIELD 1.2.840.114 [id number] Univers 00:00:00 00:00:00 Only Unassigned, GE 350.1.13.10 ity of [place] [facility] 4.2.7.2.686 Javier as [phone] [facility] [address] [place] 2020-03-02 2020-03-02 Outpatient R AYAZ MOULTON [facility] [id number] Univers 16:00:00 16:00:00 ity of [facility] 2020-02-27 2020-02-27 Transition Jackie Almeida 1.2.840.114 [id number] Univers 00:00:00 00:00:00 of Care Airam Grey 350.1.13.10 i ty of [place] 4.2.7.2.686 [place] [phone] [facility] [address] [place] 2020-02-24 2020-02-26 Hospital Ayaz Moulton [facility] 1.2.840.114 [id number] Univers 07:52:00 12:30:00 Encounter Erin 350.1.13.10 ity of [place] 4.2.7.2.686 [place] [phone] [facility] [address] [place] 2020-02-23 2020-02-23 Outpatient R AYAZ MOULTON [facility] [id number] Univers 13:45:00 13:45:00 ity of [facility] 2020-02-23 2020-02-23 Laboratory Only, Adc Test [facility] 1.2.840. 114 [id number] Univers 10:17:35 10:32:35 Only Ayaz Moulton 350.1.13.10 ity of [place] 4.2.7.2.686 [place] [phone] [facility] [address] [place] 2020-02-23 2020-02-23 Orders Doctor GARFIELD 1.2.840.114 [id number] Univers 00:00:00 00:00:00 Only Unassigned, GE 350.1.13.10 ity of [place] [facility] 4.2.7.2.686 Javier as [phone] [facility] [address] 2020-02-16 2020-02-16 Workers' Compensation Claims Examiner Vls-Lab [facility] 1.2.840.114 [id number] Univers 15:19:34 15:34:34 Visit Unknown, Attending SPECIALTY 350.1.13. 10 ity of [place].2.7.2.686 [place] CENTER AT [phone] Wi dicbrannon VICTORY 353 [facility] 2020-02-16 2020-02-16 Outpatient R UNKNOWN, [facility] [id number] Univers 15:30:00 15:30:00 ATTENDING ity of [facility] 2020-02-16 2020-02-16 Outpatient R KENNEYKARENN [facility] [id number] Univers 12:00:00 12:00:00 ity of [facility] 2020-02-15 2020-02-15 Reflucio Judge [facility] 1.2.840.114 [id number] Univers 00:00:00 00:00:00 [facility] 350.1.13.10 it y of [place] 4.2.7.2.686 Javier as Professio [phone] Wi hanselbrannon [facility] [address] [place] Office Building One 2020-02-11 2020-02-11 Outpatient R KAREN MOULTONN [facility] [id number] Univers 09:45:00 09:45:00 ity of [facility] 2020-02-04 2020-02-04 [facility] Karen Moultonn [facility] 1.2.840.114 [id number] Univers 08:06:54 23:59:00 Encounter Health 350.1.13.10 ity of [place]2.7.2.[place] [phone] [facility] 8[address] ([facility]) 2020-02-04 2020-02-04 Outpatient R KENNEYKARENN [facility] [id number] Univers 00:00:00 00:00:00 ity of [facility] 2020-01-23 2020-01-23 Office KenneyKarenn [facility] 1.2.840.114 [id number] Univers 10:02:38 10:58:32 Visit [place] 350.1.13.10 i ty of [place] 4.2.7.2.686 [place] Profess[place] [phone] Wi dical nal [address] 2020-01-23 2020-01-23 Outpatient R AYAZ MOULTON [facility] [id number] Univers 10:00:00 10:00:00 ity of [facility] 2020-01-23 2020-01-23 Orders Doctor GARFIELD 1.2.840.114 [id number] Univers 00:00:00 00:00:00 Only Unassigned, GE 350.1.13.10 ity of [place] [facility] 4.2.7.2.686 Javier as [phone] [facility] [address] [place] 2020-01-19 2020-01-19 Outpatient R AYAZ MOULTON [facility] [id number] Univers 10:30:00 10:30:00 ity of [facility] 2020-01-19 2020-01-19 [facility] 1.2.840.114 [id number] Univers 00:00:00 00:00:00 [facility] [id number] i ty of [place] 4.2.7.2.686 Javier as Professio [phone] Wi dical nal [address] 2020-01-15 2020-01-15 Patient Jackie Alicea 1.2.840.114 [id number] Univers 00:00:00 00:00:00 Outreach Bailee Grey 350.1.13.10 [place]y [place] [phone] [facility] [address] 2020-01-14 2020-01-14 Emergency Deysi Mayfield [facility] 1.2.840.114 [id number] Univers 19:32:00 21:41:00 Sonyaaustin Mcclellan 350.1.13.10 i ty [place].2.[place] [phone] [facility] [address] [place] 2020-01-07 2020-01-07 Outpatient R JERRI, [facility] [id number] Univers 16:15:00 16:15:00 ATTENDING ity of [facility] 2019-12-30 2019-12-30 Urgent Provider, [facility] 1.2.840.114 [id number] Univers 16:37:53 17:37:25 Care Aleksandra Davidson [id number] ity of [place] 4.2.7.2.686 Javier as Professio [phone] [address] Office [facility] 2019-12-30 2019-12-30 [facility] [id number] Univers 16:40:00 16:40:00 ALEKSANDRA ity [facility] 2019-12-26 2019-12-26 Refill [facility] 1.2.840.114 [id number] Univers 00:00:00 00:00:00 [facility] [id number] it y of [place] 4.2.7.2.686 Javier as Professio [phone] [address] 2019-12-24 2019-12-24 [facility] [id number] Univers 08:40:00 23:59:00 Encounter Denise Mcclellan 350.1.13.10 ity of [place] [phone] [facility] [address] 2019-12-24 2019-12-24 Outpatient R [facility] [id number] Univers 00:00:00 00:00:00 DENISE [facility] 2019-12-24 2019-12-24 Orders Doctor GARFIELD 1.2.840.114 [id number] Univers 00:00:00 00:00:00 Only Unassigned, GE 350.1.13.10 [place]y of [place] [facility] 4.2.7.2.686 Javier as [phone] [facility] [address] 2019-12-02 2019-12-02 Office [facility] 1.2.840.114 [id number] Univers 16:41:59 17:01:26 Visit Denise Huang 350.1.13.10 it y of [place] 4.2.7.2.686 Jvaier as Professio [phone] [address] Office [facility] 2019-12-02 2019-12-02 Outpatient R [facility] [id number] Univers 16:30:00 16:30:00 DENISE ity of [facility] 2019-11-17 2019-11-17 Transition Juan Pablo Jackie 1.2.840.114 [id number] Univers 00:00:00 00:00:00 of Care Airam Bae Grey 350.1.13.10 i [place] [phone] [address] 2019-11-09 2019-11-14 Hospital Claudio Rutledge [facility] 1.2.840.1 [id number] Univers 19:37:00 13:03:00 Encounter Nayan Krishnamurthy 350.1.13.10 ity of [place].2.[place] [phone] [address] 2019-11-07 2019-11-07 Patient NixonJackie 1.2.840.114 [id number] Univers 00:00:00 00:00:00 Outreach Bailee Michael Que 350.1.13.10 [place] [phone] [address] 2019-11-05 2019-11-[address] [facility], [facility] [id number] Univers 21:47:00 00:19:00 Fabiola Mcclellan 350.1.13.10 ity of [place].2.[place] [phone] [address] 2019-11-01 2019-11-01 Laboratory Lab, Adc Fam Pob I [facility] 1.2. 840.114 [id number] Univers 15:17:16 15:37:16 Only Aleksandra Davidson 350.1.13.10 ity of [place] 4.2.7.2.686 Javier as Professio [phone] [facility] [address] [facility] 2019-11-01 2019-11-01 Outpatient O STUART [facility] [id number] Univers 15:20:00 15:20:00 ALEKSANDRA hernández of [facility] 2019-10-01 2019-10-01 Refill Doctor [facility] 1.2.840.114 [id number] Univers 00:00:00 00:00:00 Unassigned, Health 350.1.13.10 ity of [place] 4.2.7.2.686 Javier as Professio [phone] [address] 2019-09-22 2019-09-22 [facility] 1.2.840.114 [id number] Univers 00:00:00 00:00:00 Denise [place] 350.1.13.10 i ty of [place].2.[place] Profess[place] [phone] [address] 2019-08-01 2019-08-01 Outpatient R ALFIE [facility] [id number] Univers 13:00:00 13:00:00 DENISE ity of [facility] 2019-08-01 2019-08-01 Telemedici [facility] 1.2.840.114 [id number] Univers 10:29:56 10:44:56 ne Visit Denise [place] 350.1.13.10 ity of [place].2.[place] [phone] [address] 2019-07-31 2019-07-31 Telephone [facility] 1.2.840.114 [id number] Univers 00:00:00 00:00:00 [facility] 350.1.13.10 i ty of [place] 4.2.7.2.686 Javier as Professio [phone] [address] 2019-06-17 2019-06-17 Transition Jackie Narayanan 1.2.840.114 [id number] Univers 00:00:00 00:00:00 of Care Luba Grey 350.1.13.10 [place] of [place].2.[place] [phone] [address] 2019-06-13 2019-06-16 Office Pob1, Acute Care Clinic [facility] 1. 2.840.114 [id number] Univers 14:59:41 08:53:00 Visit Eula Graff Health 350.1.13.10 ity of [place] 4.2.7.2.686 Javier as Professio [phone] [address] Office [facility] 2019-06-14 2019-06-15 Emergency X EL [facility] ERT [id number] Univers 23:44:10 02:17:00 LORETALI ity [facility] 2019-06-14 2019-06-15 [facility] [id number] Univers 23:44:10 02:17:00 Klaudia S [place] 350.1.13.10 ity of [place] 4[place].2.[place] [phone] [address] 2019-06-13 2019-06-13 Outpatient R [facility] [id number] Univers 15:00:00 15:00:00 ity of [facility] 2019-06-13 2019-06-13 Telephone [facility] 1.2.840.114 [id number] Univers 00:00:00 00:00:00 [facility] 350.1.13.10 i ty of [place] 4.2.7.2.686 Javier as Professio [phone] [address] Office [facility] 2019-06-13 2019-06-13 [facility] 1.2.840.114 [id number] Univers 00:00:00 00:00:00 (Out) Aleksandra Health 350.1.13.10 it y of [place] 4.2.7.2.686 Javier as Professio [phone] [address] Office [facility] 2018-09-16 2018-09-16 [facility] [id number] Univers 11:15:06 23:59:00 CHEN ity of [facility] 2017-12-20 2017-12-20 Outpatient 3 Alex Talavera [facility] [id number] St. 13:00:00 23:59:00 Alex Talavera [facility] 2017-08-22 2017-08-22 Outpatient 3 Alex Talavera [facility] [id number] St. 11:02:00 23:59:00 Alex Talavera [facility] 2017-07-24 2017-07-24 Outpatient C [facility] [id number] 00:01:00 00:01:00 [facility] 2017-07-19 2017-07-19 Inpatient C [facility] [id number] 08:59:00 08:59:00 [facility] 2016-11-06 2016-11-06 Outpatient [facility] [id number] 15:20:00 15:20:00 [facility] Results Test Description Test Time Test Comments Results Result Sourc e Comments US Gallbladder 2017-10-24 Patient: SHE HAAS 00:39:46 Date/Time11/02/2017 00:17 CDTReason for Examr/o acute cholecysitits.;Abdominal pain, right upper quadrantReportABDOMINAL SONOGRAM:LOCATION CODE: [id number]: PainTECHNIQUE: Static sonographic images are provided for interpretation. No physician participation occurred.COMPARISON: NoneFINDINGS:Several shadowing gallstones are noted. The gallbladder wall measures 2 mm. The CBD measures 5 mm. No ascites is identified.IMPRESSION:Cholel ithiasis without evidence of cholecystitis. Final Dictated by: MD Naik Roman PDictated DT/TM: 11/02/2017 0:38 amSigned by: MD Naik Roman PSigned (Electronic Signature): 11/02/2017 0:39 am Varicella-Zoster V Ab, IgG 2016-11-09 11:37:00 Test Item Value Reference Range Interpretation Comme nts Varicella Zoster IgG (test 743 index Immune >165 N Negative <135 Equivocal 135 - 165 code = 137922) Positive >165 A positive result generally indic ates exposure to thepathogen or administration of specific immuno globulins,but it is not indication of active infection or stageof dise ase. Mumps Antibodies, [id number] 11:37:00 Test Item Value Reference Range Interpretation Comments Mumps Abs, IgG 106.0 AU/mL Immune >10.9 N Negative <9. 0 (test code = Equivocal 9.0 - 10.9 075975) Positive >10.9A positive result generally indic ates past exposure t oMumps virus or previo us vaccination. Rubeola Antibodies, [id number] 11:37:00 Test Item Value Reference Range Interpretation Comments Rubeola Ab, IgG >300.0 AU/mL Immune >29.9 N Negative <2 5.0 (test code = Equivocal 25.0 - 29.9 672147) Positive >29.9P resence of antibodies t o Rubeola is pres umptive evidenceof immu nity except when acu te infection is suspected. Rubella [id number] 02:55:00 Test Item Value Reference Range Interpretation Comments Rubella IgG (test code = RUBELIGG) Immune Immune N Hep B Surface [id number] 01:01:00 Test Item Value Reference Range Interpretation Comments Hep Bs Ab (test code = HBSAB) Nonreactive Non-Reactive A
[2022-05-01] MEDS ORDERED: NA CHLORIDE 0.9% 1,000 ML ONE (20:16)
[2022-05-01 20:20] LABS: Urine Blood Negative (Negative); Urine Glucose Negative (Negative); Urine Protein 1+ (Negative); Urine pH 7.5 (5.0-7.0)
[2022-05-01 20:40] LABS: Absolute Lymphocytes (CBC) 0.8 K/uL (0.7-4.9); Hematocrit 42.4 % (36.0-45.0); Lymphocytes % 12.9 % (15.3-44.8); MCV 92.4 fL (80-100); MPV 8.2 fL (7.6-11.3); RBC Red Blood Cell Count 4.59 M/uL (3.86-4.86)
[2022-05-01 20:41] LABS: Protime INR 1.17
--- NOTE | 2022-05-01 20:42 | RAD REPORT ---
EXAM DESCRIPTION: CT - Head Brain Wo Cont - 05/01/2022 8:32 pm CLINICAL HISTORY: Headache COMPARISON: none TECHNIQUE: Computed axial tomography of the head was obtained. IV contrast was not requested. All CT scans are performed using dose optimization technique as appropriate and may include automated exposure control or mA/KV adjustment according to patient size. FINDINGS: An intracranial bleed is not seen The ventricles are normal in caliber No significant hypodense areas within the brain visualized No extra-axial fluid collection is noted. Fluid within the sinuses/ mastoids is not seen IMPRESSION: No acute intracranial abnormality is seen If patient's symptoms persist MRI of the brain would be recommended
--- NOTE | 2022-05-01 20:46 | RAD REPORT ---
EXAM DESCRIPTION: CTSpine Lumbar Wo Con05/01/2022 8:34 pm CLINICAL HISTORY: Lower back pain COMPARISON: None TECHNIQUE: Computed axial tomography lumbar spine was obtained with coronal and sagittal reconstruct ion. All CT scans are performed using dose optimization technique as appropriate and may include automated exposure control or mA/KV adjustment according to patient size. FINDINGS: No fracture is seen. No dislocation is noted. Mild scoliosis Small left posterior-lateral disc herniation L5-S1 suspected IMPRESSION: Negative for a lumbar fracture. Small left posterolateral disc herniation L5-S1 suspected. Nonemergent MRI could be obtained for furt her evaluation
[2022-05-01 20:51] LABS: Albumin 3.5 g/dL (3.4-5.0); Bilirubin Direct 0.2 mg/dL (0-0.2); Bilirubin Total 0.5 mg/dL (0.2-1.0); Magnesium 2.3 mg/dL (1.6-2.4); Potassium 3.8 mmol/L (3.5-5.1); Protein, Total 7.7 g/dL (6.4-8.2); Troponin High Sensitivity 4.8 pg/mL (<58.9)
--- NOTE | 2022-05-01 21:01 | RAD REPORT ---
EXAM DESCRIPTION: Josue Single View05/01/2022 8:49 pm CLINICAL HISTORY: cough COMPARISON: none FINDINGS: The lungs appear clear of acute infiltrate. The heart is normal size IMPRESSION: No acute abnormalities displayed
--- NOTE | 2022-05-01 21:54 | ER ---
Nurse's Notes [facility] Name: Estefany Beckham Age: 41 yrs Sex: Female : 1980 Arrival Date: 05/01/2022 Time: 18:27 Bed 16 Private MD: Diagnosis: Low back pain;Strain of muscle, fascia and tendon of lower back;Headache;Other intervertebral disc disorders, lumbar region-L5 -S1 herniation Presentation: 05/01 18:56 Chief complaint: Patient states: Low back pain that started last night, headache and ph eye twitching that started today, denies N/V/D, also denies fever or urinary symptoms. Coronavirus screen: Vaccine status: Patient reports receiving the 2nd dose of the covid vaccine. Ebola Screen: No symptoms or risks identified at this time. Initial Sepsis Screen: Does the patient meet any 2 criteria? No. Patient's initial sepsis screen is negative. Does the patient have a suspected source of infection? No. Patient's initial sepsis screen is negative. Risk Assessment: Do you want to hurt yourself or someone else? Patient reports no desire to harm self or others. Onset of symptoms was May 01, 2022. 18:56 Method Of Arrival: Ambulatory ph 18:56 Acuity: TENISHA 4 ph Triage Assessment: 20:52 Headache History: The patient has had previous headaches and this one is similar to [facility] previous episodes. General: Appears uncomfortable, obese, Behavior is calm, cooperative, appropriate for age. Pain: Pain currently is 4 out of 10 on a pain scale. Pain: Pain began gradually. Neuro: No deficits noted. 20:52 Pain: Also complains of no other associated symptoms. 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 - Social history:: Smoking status: Patient denies any tobacco usage or history of. Screenin:50 [facility] ED Fall Risk Assessment (Adult) History of falling in the last 3 months, [facility] including since admission No falls in past 3 months (0 pts) Confusion or Disorientation No (0 pts) Intoxicated or Sedated No (0 pts) Impaired Gait No (0 pts) Mobility Assist Device Used No (0 pt) Altered Elimination No (0 pt) Score/Fall Risk Level 0 - 2 = Low Risk. Abuse screen: Denies threats or abuse. Denies injuries from another. Nutritional screening: No deficits noted. Tuberculosis screening: No symptoms or risk factors identified. Vital Signs: 18:56 BP 117 / 83; Pulse 87; Resp 18; Temp 97.9; Pulse Ox 98% on R/A; Weight 87.54 kg; Height ph 5 ft. 3 in. (160.02 cm); 20:48 BP 112 / 76; Pulse 85; Resp 18; Pulse Ox 99% ; jh5 22:28 BP 110 / 68; Pulse 81; Resp 18 S; Pulse Ox 100% on R/A; as6 18:56 Body Mass Index 34.19 (87.54 kg, 160.02 cm) ph [place] Coma Score: 21:48 Eye Response: spontaneous(4). Verbal Response: oriented(5). Motor Response: obeys prudencio commands(6). Total: 15. ED Course: 18:27 Patient arrived in ED. rg4 18:58 Triage completed. ph 18:59 Arm band placed on Patient placed in waiting room, Patient notified of wait time. ph 19:45 Jarrett Bryan MD is Attending Physician. prudencio 19:50 Patient has correct armband on for positive identification. Bed in low position. Call [facility] light in reach. Side rails up X 1. 19:50 No provider procedures requiring assistance completed. jh5 21:52 Iain Gallo MD is Referral Physician. prudencio 22:00 Mark Dennis RN is Primary Nurse. as6 22:29 IV discontinued, intact, bleeding controlled, No redness/swelling at site. Pressure as6 dressing applied. Administered Medications: 20:29 Drug: NS 0.9% 1000 ml Route: IV; Rate: 1 bolus; Site: left antecubital; 5 22:30 Follow up: Response: No adverse reaction; IV Status: Completed infusion; IV Intake: as6 1000ml 22:13 Drug: Decadron - Dexamethasone 10 mg Route: IVP; Site: left antecubital; as6 22:30 Follow up: Response: No adverse reaction as6 22:13 Drug: TORadol (ketorolac) 30 mg Route: IVP; Site: left antecubital; as6 22:29 Follow up: Response: No adverse reaction as6 22:13 Drug: Valium (diazepam) 10 mg Route: PO; as6 22:29 Follow up: Response: No adverse reaction as6 Medication: 19:50 VIS not applicable for this client. 5 Intake: 22:30 IV: 1000ml; Total: 1000ml. as6 Outcome: 21:54 Discharge ordered by MD. flannery 22:29 Discharged to home ambulatory, with significant other. as6 22:29 Condition: stable 22:29 Discharge instructions given to patient, Instructed on discharge instructions, follow up and referral plans. medication usage, Demonstrated understanding of instructions, follow-up care, medications, Prescriptions given X 2. 22:30 Patient left the ED. as6 Signatures: Jarrett Bryan MD MD cha Hall, Patricia, RN RN Beverly Krause rg4 Kaity Jefferson, RN RN 5 Mark Dennis RN RN as6
--- NOTE | 2022-05-01 21:54 | EDPHYS ---
Physician Documentation [facility] Name: Estefany Beckham Age: 41 yrs Sex: Female : 1980 Arrival Date: 05/01/2022 Time: 18:27 Bed 16 Private MD: ED Physician Jarrett Bryan HPI: 05/01 21:44 This 41 yrs old Female presents to ER via Ambulatory with complaints of prudencio Headache, Back Pain. 21:44 The patient complains of pain to the top of head, forehead, left frontal area, left prudencio side of the back of head, left occipital area, left base of the skull, right frontal area, right side of the back of head, right occipital area and right base of the skull. The patient describes the headache as aching. Onset: The symptoms/episode began/occurred 1 day(s) ago. Associated signs and symptoms: The patient has no apparent associated signs or symptoms. Severity of symptoms: At its worst the pain was mild, in the emergency department the pain is unchanged. Headache History: The patient has had previous headaches and this one is similar to previous episodes. 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 - Social history:: Smoking status: Patient denies any tobacco usage or history of. ROS: 21:45 Constitutional: Negative for fever, chills, and weight loss, Eyes: Negative for injury, prudencio pain, redness, and discharge, ENT: Negative for injury, pain, and discharge, Neck: Negative for injury, pain, and swelling, Cardiovascular: Negative for chest pain, palpitations, and edema, Respiratory: Negative for shortness of breath, cough, wheezing, and pleuritic chest pain, Abdomen/GI: Negative for abdominal pain, nausea, vomiting, diarrhea, and constipation, : Negative for injury, bleeding, discharge, and swelling, MS/Extremity: Negative for injury and deformity, Skin: Negative for injury, rash, and discoloration, Psych: Negative for depression, anxiety, suicide ideation, homicidal ideation, and hallucinations, Allergy/Immunology: Negative for hives, rash, and allergies, Endocrine: Negative for neck swelling, polydipsia, polyuria, polyphagia, and marked weight changes, Hematologic/Lymphatic: Negative for swollen nodes, abnormal bleeding, and unusual bruising. 21:45 Back: Positive for decreased range of motion, pain at rest, pain with movement, of the lumbar area. 21:45 Neuro: Positive for headache. Exam: 21:45 Constitutional: This is a well developed, well nourished patient who is awake, alert, prudencio and in no acute distress. Head/Face: Normocephalic, atraumatic. Eyes: Pupils equal round and reactive to light, extra-ocular motions intact. Lids and lashes normal. Conjunctiva and sclera are non-icteric and not injected. Cornea within normal limits. Periorbital areas with no swelling, redness, or edema. ENT: Nares patent. No nasal discharge, no septal abnormalities noted. Tympanic membranes are normal and external auditory canals are clear. Oropharynx with no redness, swelling, or masses, exudates, or evidence of obstruction, uvula midline. Mucous membranes moist. Neck: Trachea midline, no thyromegaly or masses palpated, and no cervical lymphadenopathy. Supple, full range of motion without nuchal rigidity, or vertebral point tenderness. No Meningismus. Chest/axilla: Normal chest wall appearance and motion. Nontender with no deformity. No lesions are appreciated. Cardiovascular: Regular rate and rhythm with a normal S1 and S2. No gallops, murmurs, or rubs. Normal PMI, no JVD. No pulse deficits. Respiratory: Lungs have equal breath sounds bilaterally, clear to auscultation and percussion. No rales, rhonchi or wheezes noted. No increased work of breathing, no retractions or nasal flaring. Abdomen/GI: Soft, non-tender, with normal bowel sounds. No distension or tympany. No guarding or rebound. No evidence of tenderness throughout. Female : Normal external genitalia. Skin: Warm, dry with normal turgor. Normal color with no rashes, no lesions, and no evidence of cellulitis. MS/ Extremity: Pulses equal, no cyanosis. Neurovascular intact. Full, normal range of motion. Neuro: Awake and alert, GCS 15, oriented to person, place, time, and situation. Cranial nerves II-XII grossly intact. Motor strength 5/5 in all extremities. Sensory grossly intact. Cerebellar exam normal. Normal gait. Psych: Awake, alert, with orientation to person, place and time. Behavior, mood, and affect are within normal limits. 21:45 ECG was reviewed by the Attending Physician. 21:45 Back: pain, that is mild, ROM is painful, with flexion, with extension, normal spinal alignment noted, CVA tenderness, is absent, muscle spasm, is not present. Vital Signs: 18:56 BP 117 / 83; Pulse 87; Resp 18; Temp 97.9; Pulse Ox 98% on R/A; Weight 87.54 kg; Height ph 5 ft. 3 in. (160.02 cm); 20:48 BP 112 / 76; Pulse 85; Resp 18; Pulse Ox 99% ; jh5 22:28 BP 110 / 68; Pulse 81; Resp 18 S; Pulse Ox 100% on R/A; as6 18:56 Body Mass Index 34.19 (87.54 kg, 160.02 cm) ph Nabor Coma Score: 21:48 Eye Response: spontaneous(4). Verbal Response: oriented(5). Motor Response: obeys [facility] commands(6). Total: 15. MDM: 19:45 Patient medically screened. [facility] 21:48 Differential diagnosis: cluster headache, arthritis, Hydronephrosis ruptured disc, prudencio Scoliosis spinal injury, sprain, migraine, tension headache. Data reviewed: vital signs, nurses notes, lab test result(s), EKG, radiologic studies, CT scan, plain films. Consideration of Admission/Observation Escalation of care including admission/observation considered. I considered the following discharge prescriptions or medication management in the emergency department Medications were administered in the Emergency Department. See MAR. Test considered but Not performed: MRI: mri brain and l spine. Care significantly affected by the following chronic conditions: Hypertension. 05/01 20:07 Order name: Basic Metabolic Panel; Complete Time: :43 [facility] 05/01 20:07 Order name: CBC with Diff; Complete Time: :43 [facility] 05/01 20:07 Order name: LFT's; Complete Time: :43 [facility] 05/01 20:07 Order name: Magnesium; Complete Time: :43 [facility] 05/01 20:07 Order name: NT PRO-BNP; Complete Time: 21:43 [facility] 05/01 20:07 Order name: PT-INR; Complete Time: 21:43 [facility] 05/01 20:07 Order name: Troponin HS; Complete Time: 21:43 [facility] 05/01 20:07 Order name: XRAY Chest (1 view) [facility] 05/01 20:07 Order name: CT Head Brain wo Cont prudencio 05/01 20:07 Order name: CT Lumbar Spine Wo Con prudencio 05/01 20:20 Order name: Urine Dipstick-Ancillary; Complete Time: 21:43 EDMS 05/01 20:23 Order name: Urine --Ancillary (enter results) mw2 05/01 20:42 Order name: CT; Complete Time: 21:43 EDMS 05/01 21:01 Order name: Urine --Ancillary; Complete Time: 21:43 EDMS 05/01 20:07 Order name: EKG; Complete Time: 20:08 [facility] 05/01 20:07 Order name: Cardiac monitoring; Complete Time: 20:29 [facility] 05/01 20:07 Order name: EKG - Nurse/Tech; Complete Time: 20:29 [facility] 05/01 20:07 Order name: IV Saline Lock; Complete Time: 20:29 [facility] 05/01 20:07 Order name: Labs collected and sent; Complete Time: 20:29 [facility] 05/01 20:07 Order name: O2 Per Protocol; Complete Time: 20:29 [facility] 05/01 20:07 Order name: O2 Sat Monitoring; Complete Time: 20:29 [facility] 05/01 20:08 Order name: Urine Dipstick-Ancillary (obtain specimen); Complete Time: 20:39 [facility] 05/01 20:08 Order name: Urine Test (obtain specimen); Complete Time: 20:39 [facility] 05/01 20:46 Order name: CT; Complete Time: 21:43 EDMS 05/01 21:01 Order name: RAD; Complete Time: 21:43 EDMS EC:45 Rate is 81 beats/min. Rhythm is regular. QRS [place] is Normal. OK interval is normal. QRS prudencio interval is normal. QT interval is normal. No Q waves. T waves are Normal. No ST changes noted. Clinical impression: Normal ECG and No evidence of ischemia. Interpreted by me. Reviewed by me. Administered Medications: 20:29 Drug: NS 0.9% 1000 ml Route: IV; Rate: 1 bolus; Site: left antecubital; 5 22:30 Follow up: Response: No adverse reaction; IV Status: Completed infusion; IV Intake: as6 1000ml 22:13 Drug: Decadron - Dexamethasone 10 mg Route: IVP; Site: left antecubital; as6 22:30 Follow up: Response: No adverse reaction as6 22:13 Drug: TORadol (ketorolac) 30 mg Route: IVP; Site: left antecubital; as6 22:29 Follow up: Response: No adverse reaction as6 22:13 Drug: Valium (diazepam) 10 mg Route: PO; as6 22:29 Follow up: Response: No adverse reaction as6 Disposition Summary: 05/01/22 21:54 Discharge Ordered Location: Home prudencio Problem: new prudencio Symptoms: have improved prudencio Condition: Stable prudencio Diagnosis - Low back pain prudencio - Strain of muscle, fascia and tendon of lower back prudencio - Headache prudencio - Other intervertebral disc disorders, lumbar region - L5 -S1 herniation prudencio Followup: prudencio - With: Private Physician - When: 2 - 3 days - Reason: Recheck today's complaints, Continuance of care, Re-evaluation by your physician Followup: prudencio - With: Iain Gallo MD - When: 2 - 3 days - Reason: Recheck today's complaints, Re-evaluation by your physician Discharge Instructions: - Discharge Summary Sheet prudencio - Acute Back Pain, Adult prudencio - General Headache Without Cause prudencio - Musculoskeletal Pain prudencio - General Headache Without Cause, [id number] prudencio Forms: - Medication Reconciliation Form prudencio - Thank You Letter prudencio - Antibiotic Education prudencio - Prescription Opioid Use prudencio Prescriptions: - dexamethasone 2 mg Oral tablet - take 1 tablet by ORAL route 2 times per day; 10 tablet; Refills: 0, Product [facility] Selection Permitted - Ibuprofen 600 mg Oral Tablet - take 1 tablet by ORAL route every 6 hours As needed take with food; 30 tablet; prudencio Refills: 0, Product Selection Permitted Signatures: Dispatcher [employer] Jarrett Raymundo MD MD cha Hall, Patricia, RN RN Kaity Horowitz RN RN [id number] Mark Dennis RN RN as6
[2022-05-01] MEDS ORDERED: dexAMETHasone 10 MG/ML VIAL ONE (22:08)
[2022-05-01] MEDS ORDERED: DIAZEPAM 5 MG TABLET ONE (22:08)
[2022-05-01] MEDS ORDERED: KETOROLAC 30 MG/ML INJ ONE (22:08)
[2022-05-01 23:27] VITALS: TEMP 97.9
[2022-05-01 23:29] VITALS: BP 110/68; O2SAT 100
== END 2022-05-01 22:30 | disposition home or self-care (01) ==
LOC: ER 18:21
DX: S39.012A Strain of muscle, fascia and tendon of lower back, initial encounter (principal); R51.9 Headache, unspecified; M51.27 Other intervertebral disc displacement, lumbosacral region; I10 Essential (primary) hypertension; Z88.6 Allergy status to analgesic agent
CPT/HCPCS: 85025; 80048; 36415; 83735; 81025; 85610; 80076; 81003; 84484; 83880; 72131; 70450; 71045; J1100; J7030; 93005